=== PATIENT | female | born 1970 | race Hispanic/Latino ===

== ENCOUNTER 2018-07-12 13:50 | Emergency (ER) | payer MEDICARE ==
[~2018-07-12] VITALS: Ht 160 cm; Wt 99.8 kg
--- OUTSIDE RECORDS SUMMARY | 2018-07-12 13:54 | XMS REPORT | Continuity of Care Document ---
Author Author [facility] Interface Address Unknown Phone Unavailable Problems Problem Status Onset Date Classification Date Reported Comments Source Cerebrovascular accident Active 06/25/2018 06/29/2018 [facility] Right sided weakness Active 06/25/2018 06/29/2018 [facility] Dysphasia Active 06/25/2018 06/29/2018 [facility] Encounter to establish care Active 06/29/2018 [facility] Need for Tdap vaccination Active 06/29/2018 [facility] Cerebrovascular accident , unspecified mechanism Active 06/29/2018 [facility] Medications Medication Details Route Status Patient Instructions Ordering Provider Order Date Source ELIQUIS 5 mg tablet 1 tablet 2 times daily. Active 06/15/2018 [facility] atorvastatin (LIPITOR) 80 mg tablet 1 tablet daily. Active 06/15/2018 [facility] NIFEdipine (NIFEDIPINE ER) 60 mg 24 hr extended release tablet 1 tablet daily. Active 06/15/2018 [facility] losartan (COZAAR) 50 mg tablet Take 50 mg by mouth daily. Oral Active [facility] spironolactone (ALDACTONE) 25 mg tablet Take 12.5 mg by mouth daily. Oral Active [facility] insulin 70/30 NPH - REGULAR 100 unit/mL injection Inject under the skin 2 times daily (before meals). Subcutaneous Active [facility] Allergies, Adverse Reactions, Alerts Substance Category Reaction Severity Reaction type Status Date Reported Comments Source Immunizations Immunization Date Given Site Status Last Updated Comments Source Influenza, Vaccine<FLUCELVAX>(Multi-Dose) 06/25/2018 Not Given Deferred: Patient Refused [facility] Tdap (Tetanus Toxoid, Reduced Diphtheria Toxoid And Acellular Pertussis, Absorbed) 06/25/2018 Not Given Deferred: Patient Refused [facility] Results Order Name Results Value Reference Range Date Interpretation Comments Source Vital Signs Vital Sign Value Date Comments Source Heart Rate 88 06/25/2018 [facility] Systolic (mm Hg) 127 06/25/2018 [facility] Diastolic (mm Hg) 82 06/25/2018 [facility] Temperature Oral (F) 36.56 Laurie 06/25/2018 [facility] Respitory Rate 20 06/25/2018 [facility] Height 160 cm 06/25/2018 [facility] Weight 95.255 06/25/2018 [facility] Encounters Location Location Details Encounter Type Encounter Number Reason For Visit Attending Provider ADM Date DC Date Status Source [facility] Orders Only [id number] Fredy Stone MD 06/25/2018 [facility] Travel [id number] 06/25/2018 [facility] [place] Office Visit [id number] Fredy Stone MD 06/25/2018 06/25/2018 [facility] Procedures Procedure Code Date Perfomer Comments Source
--- OUTSIDE RECORDS SUMMARY | 2018-07-12 13:54 | XMS REPORT | Clinical Summary ---
Author Author [facility] Organization [facility] Address Unknown Phone Unavailable Care Team Providers Care Undercutter Operator Name Role Phone Fredy Stone MD PCP Allergies No Known Allergies Medications End Date Status Medication Sig Dispensed Refills Start Date Active ELIQUIS 5 mg tablet 1 tablet 2 0 times daily. 9 Active atorvastatin (LIPITOR) 80 1 tablet 0 mg tablet daily. 9 Active NIFEdipine (NIFEDIPINE 1 tablet 0 ER) 60 mg 24 hr extended daily. 9 release tablet Active losartan (COZAAR) 50 mg Take 50 mg by 0 tablet mouth daily. Active spironolactone Take 12.5 mg 0 (ALDACTONE) 25 mg by mouth tabletIndications: half daily. tablet daily Active insulin 70/30 NPH - Inject under 0 REGULAR 100 unit/mL the skin 2 injectionIndications: 20 times daily units AM and 10 units PM (before meals). Active Problems Problem Noted Date Cerebrovascular accident (CVA) 06/25/2018 Right sided weakness 06/25/2018 Dysphasia 06/25/2018 Encounters Care Team Description Date Type Specialty Fredy Stone MD Encounter to establish care (Primary Dx); Need for influenza vaccination; Need for Tdap vaccination; Cerebrovascular accident (CVA), unspecified mechanism; Right sided weakness; Dysphasia 06/25/2018 Office Visit Family Practice Fredy Stone MD Cerebrovascular accident (CVA), unspecified mechanism 06/25/2018 Orders Only Family Practice 06/25/2018 Travel after 06/28/2017 Immunizations Name Dates Previously Given Next Due Influenza, 06/25/2018 (Deferred: Patient Refused) Vaccine<FLUCELVAX>(Multi- Dose) Tdap (Tetanus Toxoid, 06/25/2018 (Deferred: Patient Refused) Reduced Diphtheria Toxoid And Acellular Pertussis, Absorbed) Family History Medical History Relation Name Comments Heart Father Hypertension Father Lipids Father Stroke Father Arthritis Mother Diabetes Mother Hypertension Mother Lipids Mother Stroke Mother Relation Name Status Comments Brother Alive 3 Daughter Alive 1 Father Maternal Grandfather Maternal Grandmother Mother Alive Paternal Grandfather Paternal Grandmother Sister Alive 1 Son Alive 2 Social History Date Tobacco Use Types Packs/Day Years Used Former Smoker Smokeless Tobacco: Never Used Alcohol Use Drinks/Week oz/Week Comments Yes socially Sex Assigned at Date Recorded Not on file Industry Job Start Date Occupation Not on file Not on file Not on file Travel End Travel History Travel Start No recent travel history available. Last Filed Vital Signs Time Taken Vital Sign Reading 06/25/2018 8:37 AM FLIGHT OPERATIONS MANAGER Blood Pressure 127/82 06/25/2018 9:45 AM FLIGHT OPERATIONS MANAGER Pulse 88 06/25/2018 8:37 AM FLIGHT OPERATIONS MANAGER Temperature 36.6 C (97.8 F) 06/25/2018 8:37 AM FLIGHT OPERATIONS MANAGER Respiratory Rate 20 - Oxygen Saturation - - Inhaled Oxygen - Concentration 06/25/2018 8:37 AM FLIGHT OPERATIONS MANAGER Weight 95.3 kg (210 lb) 06/25/2018 8:37 AM FLIGHT OPERATIONS MANAGER Height 160 cm (5' 3") 06/25/2018 8:37 AM FLIGHT OPERATIONS MANAGER Body Mass Index 37.2 Plan of Treatment Care Team Description Date Type Specialty confirmed 07/02/2018 Ancillary Radiology Procedure 07/24/2018 Lab Appointment Fredy Harper MD [address] [place] [id number] well women exam 07/24/2018 Office Visit Family Practice Ken Snow Denise 07/24/2018 Office Visit Clinical Pharmacy Health Maintenance Due Date Last Done Comments Cervical Cancer Scrn (3 1991 Yrs) Breast Cancer Scrn 2010 (Yearly) IMM Influenza Seasonal 01/22/2018Jan to June (>/=19 yrs) Results Not on fileafter 06/28/2017 Insurance Type Payer Benefit Subscriber ID Effective Phone Address Plan / Dates Group [place] MED[place] [id number] [facility] xxxxxxxxx 2018-P [phone] [id number] [place] [address] Advance Directives Patient has advance care planning documents on file. For more information, celi hernandez contact: [address] [address]
--- OUTSIDE RECORDS SUMMARY | 2018-07-12 13:54 | XMS REPORT | Clinical Summary ---
Author Author [facility] Organization [facility] Address Unknown Phone Unavailable Care Team Providers Care Heel Builder Name Role Phone Fredy Stone MD PCP [...] Encounters Care Team Description Date Type Specialty [facility] 07/10/2018 Telephone Social Work [facility] (Providers services); Pre-clinic Chart Review 07/04/2018 Telephone Social Work Fredy Stone MD Encounter to establish care 07/02/2018 Ancillary Radiology Procedure Fredy Stone MD Encounter to establish care (Primary Dx); Need for influenza vaccination; Need for Tdap vaccination; Cerebrovascular accident (CVA), unspecified mechanism; Right sided weakness; Dysphasia 06/25/2018 Office Visit Family Practice Fredy Stone MD Cerebrovascular accident (CVA), unspecified mechanism 06/25/2018 Orders Only Family Practice 06/25/2018 Travel after 07/11/2017 Immunizations Name Dates Previously Given Next Due [...] Taken Vital Sign Reading 06/25/2018 8:37 AM FLOOR HELPER Blood Pressure 127/82 06/25/2018 9:45 AM FLOOR HELPER Pulse 88 06/25/2018 8:37 AM FLOOR HELPER Temperature 36.6 C (97.8 F) 06/25/2018 8:37 AM FLOOR HELPER Respiratory Rate 20 - Oxygen Saturation - - Inhaled Oxygen - Concentration 06/25/2018 8:37 AM FLOOR HELPER Weight 95.3 kg (210 lb) 06/25/2018 8:37 AM FLOOR HELPER Height 160 cm (5' 3") 06/25/2018 8:37 AM FLOOR HELPER Body Mass Index 37.2 Plan of Treatment Care Team Description Date Type Specialty 07/24/2018 Lab Appointment Lab Fredy Stone MD [facility] [place] [address] [phone] well women exam 07/24/2018 Office Visit Family Practice Ken Snow RPH 07/24/2018 Office Visit Clinical Pharmacy Health Maintenance Due Date Last Done Comments Cervical Cancer Scrn (3 1991 Yrs) IMM Influenza Seasonal 01/22/2018 Oct to June (>/=19 yrs) Breast Cancer Scrn 07/03/2019 07/02/2018 (Yearly) Procedures Comments Procedure Name Priority Date/Time Associated Diagnosis MAMMOGRAM BILAT SCREEN Routine 07/02/2018 Encounter to establish DIGITAL 12:02 PM CDT care after 07/11/2017 Results * MAMMOGRAM BILAT SCREEN DIGITAL (07/02/2018 12:02 PM CDT) Impressions Performed At IMPRESSION: BENIGN SMS Limited examination, as detailed above. There is no definite mammographic evidence of malignancy. A 1 year screening mammogram is recommended. This document has been electronically signed. Chelsie Robles M.D. to/:07/02/2018 13:08:09 Gas Turbine Powerplant Mechanic: Ms. Carla Talamantes RT(R)(M), [facility] letter sent: Benign Exam Mammogram BI-RADS: 2 Benign G0202 z12.31 Narrative Performed At #[id number] - MAMMOGRAM BILAT SCREEN DIGITAL SMS BILATERAL DIGITAL SCREENING MAMMOGRAM WITH CAD: 07/02/2018 CLINICAL: Screening for malignancy. No prior exams were available for comparison. There are scattered fibroglandular elements in both breasts that could obscure a lesion on mammography. Current study was also evaluated with a Computer Aided Detection (CAD) system. Limited examination due to patient's limited mobility secondary to a stroke. Best images possible were obtained. There are benign calcifications in both breasts. No significant masses, calcifications, or other findings are seen in either breast. Procedure Note Interface, Rad/Mammog In - 07/02/2018 2:13 PM CDT #[id number] - MAMMOGRAM BILAT SCREEN DIGITAL BILATERAL DIGITAL SCREENING MAMMOGRAM WITH CAD: 07/02/2018 CLINICAL: Screening for malignancy. No prior exams were available for comparison. There are scattered fibroglandular elements in both breasts that could obscure a lesion on mammography. Current study was also evaluated with a Computer Aided Detection (CAD) system. Limited examination due to patient's limited mobility secondary to a stroke. Best images possible were obtained. There are benign calcifications in both breasts. No significant masses, calcifications, or other findings are seen in either breast. IMPRESSION IMPRESSION: BENIGN Limited examination, as detailed above. There is no definite mammographic evidence of malignancy. A 1 year screening mammogram is recommended. This document has been electronically signed. Chelsie Robles M.D. to/:07/02/2018 13:08:09 Gas Turbine Powerplant Mechanic: Ms. Carla Talamantes RT(R)(M), [facility] letter sent: Benign Exam Mammogram BI-RADS: 2 Benign G0202 z12.31 Performing Organization Address City/State/Zipcode Phone Number SMS after 07/11/2017 Insurance Type Payer Benefit Subscriber ID Effective Phone Address Plan / Dates Group [place] MEDICA[place] [id number] [employer] xxxxxxxxx 2018-P [phone] [address] [place] [address] Advance Directives Patient has advance care planning documents on file. For more information, celi hernandez contact: [facility] [address] [place] [id number]
--- OUTSIDE RECORDS SUMMARY | 2018-07-12 13:55 | XMS REPORT ---
[facility] Address Unknown Phone Unavailable Care Team Providers Care Assembler Brazer Name Role Phone Unavailable Unavailable Payers Payer Name Policy Type Policy Number Effective Date Expiration Date Problems This patient has no known problems. Allergies, Adverse Reactions, Alerts Allergy Name Allergy Type Status Severity Reaction(s) Onset Date Inactive Date Treating Clinician Comments No Known Allergies DA Active U 2018-05-13 00:00:00 No Known Allergies DA Active U 2015-09-26 00:00:00 Medications This patient has no known medications. Encounters Start Date/Time End Date/Time Encounter Type Admission Type Attending Clinicians [facility] Facility Care Department Encounter ID 2018-07-24 00:00:00 2018-07-24 00:00:00 Outpatient [facility] [id number] 2018-07-24 00:00:00 2018-07-24 00:00:00 Outpatient [facility] [id number] 2018-07-24 00:00:00 2018-07-24 00:00:00 Outpatient [facility] [id number] 2018-07-24 00:00:00 2018-07-24 00:00:00 Outpatient [facility] [id number] 2018-07-02 10:52:11 2018-07-02 10:52:11 Outpatient [facility] [id number] 2018-06-25 08:37:34 2018-06-25 08:37:34 Outpatient [facility] [id number] Results Test Description Test Time Test Comments Text Results Atomic Results Result Comments GLUBED 2018-06-15 17:04:00 GLUBED (test code=GLUBED) 147 MG/DL 70-110 Performed by certified sliver machine operator at [facility] [id number] 12:22:00* Test Item Value Reference Range Comments GLUBED (test code=GLUBED) 215 MG/DL 70-110 Performed by certified sliver machine operator at [facility] [id number] 07:55:00* Test Item Value Reference Range Comments GLUBED (test code=GLUBED) 141 MG/DL 70-110 Performed by certified sliver machine operator at [facility] [id number] 20:35:00* Test Item Value Reference Range Comments GLUBED (test code=GLUBED) 176 MG/DL 70-110 Performed by certified sliver machine operator at [facility] [id number] 17:16:00* Test Item Value Reference Range Comments GLUBED (test code=GLUBED) 159 MG/DL 70-110 Performed by certified sliver machine operator at [facility] [id number] 12:14:00* Test Item Value Reference Range Comments GLUBED (test code=GLUBED) 213 MG/DL 70-110 Performed by certified sliver machine operator at [facility] [id number] 08:36:00* Test Item Value Reference Range Comments GLUBED (test code=GLUBED) 183 MG/DL 70-110 Performed by certified sliver machine operator at [facility] [id number] 21:12:00* Test Item Value Reference Range Comments GLUBED (test code=GLUBED) 165 MG/DL 70-110 Performed by certified sliver machine operator at [facility] [id number] 16:50:00* Test Item Value Reference Range Comments GLUBED (test code=GLUBED) 232 MG/DL 70-110 Performed by certified sliver machine operator at [facility] [id number] 12:23:00* Test Item Value Reference Range Comments GLUBED (test code=GLUBED) 162 MG/DL 70-110 Performed by certified sliver machine operator at [facility] [id number] 08:27:00* Test Item Value Reference Range Comments GLUBED (test code=GLUBED) 206 MG/DL 70-110 Performed by certified sliver machine operator at [facility] [id number] 07:29:00* Test Item Value Reference Range Comments CREATININE (test code=CREAT) 0.7 mg/dL 0.6-1.3 [id number] 20:46:00* Test Item Value Reference Range Comments GLUBED (test code=GLUBED) 132 MG/DL 70-110 Performed by certified sliver machine operator at [facility] [id number] 16:46:00* Test Item Value Reference Range Comments GLUBED (test code=GLUBED) 155 MG/DL 70-110 Performed by certified sliver machine operator at [facility] [id number] 12:47:00* Test Item Value Reference Range Comments GLUBED (test code=GLUBED) 184 MG/DL 70-110 Performed by certified sliver machine operator at [facility] [id number] 07:58:00* Test Item Value Reference Range Comments GLUBED (test code=GLUBED) 195 MG/DL 70-110 Performed by certified sliver machine operator at [facility] [id number] 20:20:00* Test Item Value Reference Range Comments GLUBED (test code=GLUBED) 248 MG/DL 70-110 Performed by certified sliver machine operator at [facility] [id number] 16:39:00* Test Item Value Reference Range Comments GLUBED (test code=GLUBED) 148 MG/DL 70-110 Performed by certified sliver machine operator at [facility] [id number] 12:59:00* Test Item Value Reference Range Comments GLUBED (test code=GLUBED) 133 MG/DL 70-110 Performed by certified sliver machine operator at [facility] [id number] 08:35:00* Test Item Value Reference Range Comments GLUBED (test code=GLUBED) 228 MG/DL 70-110 Performed by certified sliver machine operator at [facility] [id number] 21:01:00* Test Item Value Reference Range Comments GLUBED (test code=GLUBED) 161 MG/DL 70-110 Performed by certified sliver machine operator at [facility] [id number] 17:23:00* Test Item Value Reference Range Comments GLUBED (test code=GLUBED) 168 MG/DL 70-110 Performed by certified sliver machine operator at [facility] [id number] 13:54:00* Test Item Value Reference Range Comments GLUBED (test code=GLUBED) 141 MG/DL 70-110 Performed by certified sliver machine operator at [facility] [id number] 12:54:00* Test Item Value Reference Range Comments GLUBED (test code=GLUBED) 197 MG/DL 70-110 Performed by certified sliver machine operator at [facility] [id number] 20:38:00* Test Item Value Reference Range Comments GLUBED (test code=GLUBED) 201 MG/DL 70-110 Performed by certified sliver machine operator at [facility] [id number] 17:52:00* Test Item Value Reference Range Comments GLUBED (test code=GLUBED) 164 MG/DL 70-110 Performed by certified sliver machine operator at [facility] [id number] 12:39:00* Test Item Value Reference Range Comments GLUBED (test code=GLUBED) 165 MG/DL 70-110 Performed by certified sliver machine operator at [facility] [id number] 08:32:00* Test Item Value Reference Range Comments GLUBED (test code=GLUBED) 116 MG/DL 70-110 Performed by certified sliver machine operator at [facility] [id number] 20:52:00* Test Item Value Reference Range Comments GLUBED (test code=GLUBED) 191 MG/DL 70-110 Performed by certified sliver machine operator at [facility] [id number] 17:35:00* Test Item Value Reference Range Comments GLUBED (test code=GLUBED) 162 MG/DL 70-110 Performed by certified sliver machine operator at [facility] [id number] 13:33:00* Test Item Value Reference Range Comments GLUBED (test code=GLUBED) 132 MG/DL 70-110 Performed by certified sliver machine operator at [facility] [id number] 08:30:00* Test Item Value Reference Range Comments GLUBED (test code=GLUBED) 110 MG/DL 70-110 Performed by certified sliver machine operator at [facility] [id number] 20:27:00* Test Item Value Reference Range Comments GLUBED (test code=GLUBED) 118 MG/DL 70-110 Performed by certified sliver machine operator at [facility] [id number] 17:30:00* Test Item Value Reference Range Comments GLUBED (test code=GLUBED) 167 MG/DL 70-110 Performed by certified sliver machine operator at [facility] [id number] 12:46:00* Test Item Value Reference Range Comments GLUBED (test code=GLUBED) 114 MG/DL 70-110 Performed by certified sliver machine operator at [facility] ARTERIAL THROMBOPHILIA [id number] 10:15:00* Test Item Value Reference Range Comments PROTHROMBIN 3 UNTRANSLATED (test code=FW6XIWD) NO MUTATION DETECTED () PROTHROMBIN (FACTOR II) 48291W>A MUTATION INTERPRETATION:This individual is negative (normal) for the Z02521Vgssmnbae in the Prothrombin/Factor II gene. Increased riskof thrombophilia can be caused by a variety of genetic andnon-genetic factors not screened for this assay. Laboratory testing supervised and results monitored byYulissa Crowley, Ph.D., [facility], [facility], [facility]. MUTATION ANALYSIS:The O95617W mutation [UM986563.1:g.80186B>A (c.*97G>A)] inthe Prothrombin/Factor II gene is the second most commoninherited risk factor for thrombosis occuring inapproximately 2% of Caucasians. Presence of the mutation isassociated with an elevation of prothrombin levels to about30% above normal in heterozygotes and 70% above normal inhomozygotes. The J19399H mutation is detected bypolymerase chain reaction (PCR) and flourescent probehybridization to the targeted region, followed by meltingcurve analysis with a real time PCR system. Although rare,false positive or false negative results may occur. Allresults should be interpreted in the context of clinicalfindings, relevant history, and other laboratory data. This test was developed and its analytical performancecharacteristics have been determined by [facility]. It has not beencleared or approved by the FDA. This assay has beenvalidated pursuant to the CLIA regulations and is used forclinical purposes. Health care providers, please contact your local [facility] genetic counselor or call [phone]) for assistance with interpretation of theseresults. Performed by: Mydeo Bismark ross/[place] [address] PROTHROMBIN TIME PATIENT (test code=PTP) 10.7 SECONDS 9.3-12.9 INTERNATIONAL NORMAL RATIO (test code=INR) 1.0 0.8-1.2 TARGET INR BY INDICATION Indication INR1. Prophylaxis of venous thrombosis 2.0 - 3.0 (orthopedic surgery), Prophylaxis of venous thrombosis (other than high-risk surgery), Treatment of Deep Vein Thrombosis/Pulmonary Embolism, Prevention of systemic embolism - Tissue heart valves, Acute Myocardial Infarction (to prevent systemic embolism), Valvular heart disease, Atrial Fibrillation, Bileaflet mechanical valve in aortic position.2. Mechanical prosthetic valves (high risk), 2.5 - 3.5 Presence of Lupus Anticoagulant or Antiphospholipid Antibodies, Prevention of systemic embolism - Acute Myocardial Infarction (to prevent recurrent infarct). THROMBOPLASTIN TIME PARTIAL (test code=PTT) 34.0 Seconds 25.0-39.5 Therapeutic Range: 61.8-83.8 Sec Effective 05/22/2013 PTT 1:1 MIX MAGICIAN HELPER (test code=PTTMIX2) TEST NOT PERFORMED SECS PTT 1:3 MIX (test code=PTTMIX3) TEST NOT PERFORMED SECS PT 1:2 MIX (test code=PTMIX2) TEST NOT PERFORMED SECS RVVT PATIENT (test code=RVVTPAT) 0.9 RATIO 0.0-1.2 ACTIVATED PROT C RESISTANCE (test code=APC) 3.22 RATIO 2.31-5.00 Ratios > or=to 2.31 are considered negative for the FactorV Leiden. SILICA CLOTTING TIME (test code=SILCLOT) 1.13 <1.14 PT 11.2 sec (9.6-13.0)PTT 29 sec (25-37) A Lupus Anticoagulant is NOT DETECTED. This interpretationis based on the test results. FACTOR V MUTATION (LEIDEN) (test code=FAC5M) NO MUTATION DETECTED () FACTOR V (LEIDEN) MUTATION INTERPRETATION:This individual is negative (normal) for the Factor V Leiden(R506Q) in the Factor V gene. Increased risk ofthrombophilia can be caused by a variety of genetic andnon-genetic factors not screened for this assay. Laboratory testing supervised and results monitored byKade Bethea, Ph.D., [facility], [facility]. MUTATION ANALYSIS:The Factor v Leiden (R560Q) mutation [NM 0 [address]375.2: c.1601G>A(p.R534Q)] in the Factor V gene is one of the most commoncauses of inherited thrombophilia. This mutation causesresistance to degradation of the activated protein C (APC).The Factor V Leiden (R506Q) mutation is detected bypolymerase chain reaction (PCR) and flourescent probehybridization to the targeted region, followed by meltingcurve analysis with a real time PCR system. Although rare,false positive or false negative results may occur. Allresults should be interpreted in the context of clinicalfindings, relevant history, and other laboratory data. This test was developed and its analytical performancecharacteristics have been determined by [facility]. It has not beencleared or approved by the FDA. This assay has beenvalidated pursuant to the CLIA regulations and is used forclinical purposes. Health care providers, please contact your local [facility] genetic counselor or call [phone]) for assistance with interpretation of theseresults. Performed by: Commissioner/[facility] [place] [address] PROTEIN S FREE (test code=PROTSFR) 107 % 55-124 Protein S deficiency may be acquired due to recentthrombosis, oral anticoagulant therapy, , oralcontraceptives or hormone replacement therapy, liverdysfunction, recent surgery, DIC, and vitamin K deficiency.Hereditary deficiency of Protein S show decreased levels butare rare. Elevated Protein S levels are not clinicallysignificant. Only decreased levels are associated with anincreased thrombotic risk. MILLY IGG (test code=ACAG) 0.6 GPL <=15 MILLY IGA (test code=ACAA) 1.4 APL <=12 MILLY IGM (test code=ACAM) 2.9 MPL <=12.5 The Antiphospholipid Syndrome (APS) is a clinical pathologiccondition that includes a clinical event (vascularthrombosis, mortality, thrombocytopenia, etc.) andpersistent positivity of antiphospholipid antibodies (IgG orIgM MILLY>40 GPL/MPL, IgG or IgM anti-B2GPI antibodies, or thepresence of a Lupus Anticoagulant). The InternationalConsensus guidelines suggest that these isotypes must bepresent on two or more occasions and at least 12 weeks apartto confirm antibody persistence. Although the IgA isotypehas been implicated in thrombotic events, these isotypeshave not yet been included into the APS criteria. FHOG-0-WKUUR I IGM (test code=GPIIGM) 1.4 SMU 0.0-20.0 CRJH-3-HTFVE I IGG (test code=GPIIGG) 0.5 SGU 0.0-20.0 TABB-5-THZZC I IGA (test code=GPIIGA) 5.7 MIESHA 0.0-20.0 The Antiphospholipid Syndrome (APS) is a clinical pathologiccondition that includes a clinical event (vascularthrombosis, mortality, thrombocytopenia, etc.) andpersistent positivity of antiphospholipid antibodies (IgG orIgM MILLY>40 GPL/MPL, IgG or IgM anti-B2GPI antibodies, or thepresence of a Lupus Anticoagulant). The InternationalConsensus guidelines suggest that these isotypes must bepresent on two or more occasions and at least 12 weeks apartto confirm antibody persistence. Although the IgA isotypehas been implicated in thrombotic events, these isotypeshave not yet been included into the APS criteria. HOMOCYSTEINE (test code=HOMOCY) 6.4 umol/L 3.2-10.7 HIGH SENSITIVITY CRP (test code=CRPHS) 0.275 mg/dl 0.000-0.747 [id number] 08:31:00* Test Item Value Reference Range Comments GLUBED (test code=GLUBED) 113 MG/DL 70-110 Performed by certified sliver machine operator at [facility] BASIC METABOLIC [id number] 08:00:00* Test Item Value Reference Range Comments SODIUM (test code=NA) 138 mEq/L 134-147 POTASSIUM (test code=K) 3.5 mEq/L 3.4-5.0 CHLORIDE (test code=CL) 108 mEq/L 100-108 CARBON DIOXIDE (test code=CO2) 24 mEq/L 21-33 ANION GAP (test code=GAP) 10 0-20 GLUCOSE (test code=GLU) 98 mg/dL 70-110 BLOOD UREA NITROGEN (test code=BUN) 17 mg/dL 7-18 GLOMERULAR FILTRATION RATE (test code=GFR) 106.7 95-105 Units of measure=ml/min/1.73 m2 CREATININE (test code=CREAT) 0.6 mg/dL 0.6-1.3 CALCIUM (test code=CA) 8.9 mg/dL 8.0-10.5 CBC W/AUTO [id number] 06:55:00* Test Item Value Reference Range Comments WHITE BLOOD CELL (test code=WBC) 7.72 x10 3/uL 4.5-11.0 RED BLOOD CELL (test code=RBC) 4.45 x10 6/uL 3.54-5.02 HEMOGLOBIN (test code=HGB) 13.0 g/dL 11.0-15.0 HEMATOCRIT (test code=HCT) 41.7 % 33.0-45.0 MEAN CELL VOLUME (test code=MCV) 93.7 fL 81.0-99.0 MEAN CELL HGB (test code=MCH) 29.2 pg 27.0-33.0 MEAN CELL HGB CONCETRATION (test code=MCHC) 31.2 g/dL 33.0-37.0 RED CELL DISTRIBUTION WIDTH CV (test code=RDW) 12.0 % 11.5-14.5 RED CELL DISTRIBUTION WIDTH SD (test code=RDW-SD) 41.3 fL 37.0-54.0 PLATELET COUNT (test code=PLT) 208 x10 3/uL 150-400 MEAN PLATELET VOLUME (test code=MPV) 12.5 fL 7.0-9.0 NEUTROPHIL % (test code=NT%) 55.8 % 56.0-77.0 IMMATURE GRANULOCYTE % (test code=IG%) 0.1 % 0.0-2.0 LYMPHOCYTE % (test code=LY%) 35.2 % 14.0-32.0 MONOCYTE % (test code=MO%) 6.3 % 4.8-9.0 EOSINOPHIL % (test code=EO%) 1.8 % 0.3-3.7 BASOPHIL % (test code=BA%) 0.8 % 0.0-2.0 NUCLEATED RBC % (test code=NRBC%) 0.0 % 0-0 NEUTROPHIL # (test code=NT#) 4.30 x10 3/uL 2.0-7.6 IMMATURE GRANULOCYTE # (test code=IG#) 0.01 x10 3/uL 0.00-0.03 LYMPHOCYTE # (test code=LY#) 2.72 x10 3/uL 1.0-3.8 MONOCYTE # (test code=MO#) 0.49 x10 3/uL 0.1-0.8 EOSINOPHIL # (test code=EO#) 0.14 x10 3/uL 0.0-0.2 BASOPHIL # (test code=BA#) 0.06 x10 3/uL 0.0-0.2 NUCLEATED RBC # (test code=NRBC#) 0.00 x10 3/uL 0.0-0.1 MANUAL DIFF REQUIRED (test code=MDIFF) NO [id number] 19:50:00* Test Item Value Reference Range Comments GLUBED (test code=GLUBED) 180 MG/DL 70-110 Performed by certified sliver machine operator at [facility] [id number] 17:37:00* Test Item Value Reference Range Comments GLUBED (test code=GLUBED) 70 MG/DL 70-110 Performed by certified sliver machine operator at [facility] [id number] 12:55:00* Test Item Value Reference Range Comments GLUBED (test code=GLUBED) 95 MG/DL 70-110 Performed by certified sliver machine operator at [facility] ARTERIAL THROMBOPHILIA [id number] 09:20:00* Test Item Value Reference Range Comments PROTHROMBIN 3 UNTRANSLATED (test code=HZ1XFNC) NO MUTATION DETECTED () PROTHROMBIN (FACTOR II) 37883W>A MUTATION INTERPRETATION:This individual is negative (normal) for the U98932Vsfrfnnis in the Prothrombin/Factor II gene. Increased riskof thrombophilia can be caused by a variety of genetic andnon-genetic factors not screened for this assay. Laboratory testing supervised and results monitored Topher Crowley, Ph.D., DABMG, HCLD, CGMB. MUTATION ANALYSIS:The X97806L mutation [HH672355.1:g.67847L>A (c.*97G>A)] inthe Prothrombin/Factor II gene is the second most commoninherited risk factor for thrombosis occuring inapproximately 2% of Caucasians. Presence of the mutation isassociated with an elevation of prothrombin levels to about30% above normal in heterozygotes and 70% above normal inhomozygotes. The M11546W mutation is detected bypolymerase chain reaction (PCR) and flourescent probehybridization to the targeted region, followed by meltingcurve analysis with a real time PCR system. Although rare,false positive or false negative results may occur. Allresults should be interpreted in the context of clinicalfindings, relevant history, and other laboratory data. This test was developed and its analytical performancecharacteristics have been determined by [facility]. It has not beencleared or approved by the FDA. This assay has beenvalidated pursuant to the CLIA regulations and is used forclinical purposes. Health care providers, please contact your local [facility] genetic counselor or call [phone]) for assistance with interpretation of theseresults. Performed by: Mydeo Bismark ross/[place] [address] PROTHROMBIN TIME PATIENT (test code=PTP) 10.7 SECONDS 9.3-12.9 INTERNATIONAL NORMAL RATIO (test code=INR) 1.0 0.8-1.2 TARGET INR BY INDICATION Indication INR1. Prophylaxis of venous thrombosis 2.0 - 3.0 (orthopedic surgery), Prophylaxis of venous thrombosis (other than high-risk surgery), Treatment of Deep Vein Thrombosis/Pulmonary Embolism, Prevention of systemic embolism - Tissue heart valves, Acute Myocardial Infarction (to prevent systemic embolism), Valvular heart disease, Atrial Fibrillation, Bileaflet mechanical valve in aortic position.2. Mechanical prosthetic valves (high risk), 2.5 - 3.5 Presence of Lupus Anticoagulant or Antiphospholipid Antibodies, Prevention of systemic embolism - Acute Myocardial Infarction (to prevent recurrent infarct). THROMBOPLASTIN TIME PARTIAL (test code=PTT) 34.0 Seconds 25.0-39.5 Therapeutic Range: 61.8-83.8 Sec Effective 05/22/2013 PTT 1:1 MIX MAGICIAN HELPER (test code=PTTMIX2) TEST NOT PERFORMED SECS PTT 1:3 MIX (test code=PTTMIX3) TEST NOT PERFORMED SECS PT 1:2 MIX (test code=PTMIX2) TEST NOT PERFORMED SECS RVVT PATIENT (test code=RVVTPAT) 0.9 RATIO 0.0-1.2 ACTIVATED PROT C RESISTANCE (test code=APC) 3.22 RATIO 2.31-5.00 Ratios > or=to 2.31 are considered negative for the FactorV Leiden. SILICA CLOTTING TIME (test code=SILCLOT) 1.13 <1.14 PT 11.2 sec (9.6-13.0)PTT 29 sec (25-37) A Lupus Anticoagulant is NOT DETECTED. This interpretationis based on the test results. FACTOR V MUTATION (LEIDEN) (test code=FAC5M) NO MUTATION DETECTED () FACTOR V (LEIDEN) MUTATION INTERPRETATION:This individual is negative (normal) for the Factor V Leiden(R506Q) in the Factor V gene. Increased risk ofthrombophilia can be caused by a variety of genetic andnon-genetic factors not screened for this assay. Laboratory testing supervised and results monitored byKade Bethea, Ph.D., [facility], [facility]. MUTATION ANALYSIS:The Factor v Leiden (R560Q) mutation [NM 0 83435.2: c.1601G>A(p.R534Q)] in the Factor V gene is one of the most commoncauses of inherited thrombophilia. This mutation causesresistance to degradation of the activated protein C (APC).The Factor V Leiden (R506Q) mutation is detected bypolymerase chain reaction (PCR) and flourescent probehybridization to the targeted region, followed by meltingcurve analysis with a real time PCR system. Although rare,false positive or false negative results may occur. Allresults should be interpreted in the context of clinicalfindings, relevant history, and other laboratory data. This test was developed and its analytical performancecharacteristics have been determined by [facility]. It has not beencleared or approved by the FDA. This assay has beenvalidated pursuant to the CLIA regulations and is used forclinical purposes. Health care providers, please contact your local [facility] genetic counselor or call [phone]) for assistance with interpretation of theseresults. Performed by: Commissioner/[facility] [address] PROTEIN S FREE (test code=PROTSFR) 107 % 55-124 Protein S deficiency may be acquired due to recentthrombosis, oral anticoagulant therapy, , oralcontraceptives or hormone replacement therapy, liverdysfunction, recent surgery, DIC, and vitamin K deficiency.Hereditary deficiency of Protein S show decreased levels butare rare. Elevated Protein S levels are not clinicallysignificant. Only decreased levels are associated with anincreased thrombotic risk. MILLY IGG (test code=ACAG) 0.6 GPL <=15 MILLY IGA (test code=ACAA) 1.4 APL <=12 MILLY IGM (test code=ACAM) 2.9 MPL <=12.5 The Antiphospholipid Syndrome (APS) is a clinical pathologiccondition that includes a clinical event (vascularthrombosis, mortality, thrombocytopenia, etc.) andpersistent positivity of antiphospholipid antibodies (IgG orIgM MILLY>40 GPL/MPL, IgG or IgM anti-B2GPI antibodies, or thepresence of a Lupus Anticoagulant). The InternationalConsensus guidelines suggest that these isotypes must bepresent on two or more occasions and at least 12 weeks apartto confirm antibody persistence. Although the IgA isotypehas been implicated in thrombotic events, these isotypeshave not yet been included into the APS criteria. SMNX-3-INOTP I IGM (test code=GPIIGM) 1.4 SMU 0.0-20.0 VKPM-1-RPYMM I IGG (test code=GPIIGG) 0.5 SGU 0.0-20.0 CMTX-6-IOJJA I IGA (test code=GPIIGA) 5.7 MIESHA 0.0-20.0 The Antiphospholipid Syndrome (APS) is a clinical pathologiccondition that includes a clinical event (vascularthrombosis, mortality, thrombocytopenia, etc.) andpersistent positivity of antiphospholipid antibodies (IgG orIgM MILLY>40 GPL/MPL, IgG or IgM anti-B2GPI antibodies, or thepresence of a Lupus Anticoagulant). The InternationalConsensus guidelines suggest that these isotypes must bepresent on two or more occasions and at least 12 weeks apartto confirm antibody persistence. Although the IgA isotypehas been implicated in thrombotic events, these isotypeshave not yet been included into the APS criteria. HOMOCYSTEINE (test code=HOMOCY) 6.4 umol/L 3.2-10.7 HIGH SENSITIVITY CRP (test code=CRPHS) mg/dl 0.000-0.747 [id number] 08:07:00* Test Item Value Reference Range Comments GLUBED (test code=GLUBED) 104 MG/DL 70-110 Performed by certified sliver machine operator at [facility] ARTERIAL THROMBOPHILIA [id number] 21:22:00* Test Item Value Reference Range Comments PROTHROMBIN 3 UNTRANSLATED (test code=PJ9SHAN) PROTHROMBIN TIME PATIENT (test code=PTP) 10.7 SECONDS 9.3-12.9 INTERNATIONAL NORMAL RATIO (test code=INR) 1.0 0.8-1.2 TARGET INR BY INDICATION Indication INR1. Prophylaxis of venous thrombosis 2.0 - 3.0 (orthopedic surgery), Prophylaxis of venous thrombosis (other than high-risk surgery), Treatment of Deep Vein Thrombosis/Pulmonary Embolism, Prevention of systemic embolism - Tissue heart valves, Acute Myocardial Infarction (to prevent systemic embolism), Valvular heart disease, Atrial Fibrillation, Bileaflet mechanical valve in aortic position.2. Mechanical prosthetic valves (high risk), 2.5 - 3.5 Presence of Lupus Anticoagulant or Antiphospholipid Antibodies, Prevention of systemic embolism - Acute Myocardial Infarction (to prevent recurrent infarct). THROMBOPLASTIN TIME PARTIAL (test code=PTT) 34.0 Seconds 25.0-39.5 Therapeutic Range: 61.8-83.8 Sec Effective 05/22/2013 PTT 1:1 MIX MAGICIAN HELPER (test code=PTTMIX2) TEST NOT PERFORMED SECS PTT 1:3 MIX (test code=PTTMIX3) TEST NOT PERFORMED SECS PT 1:2 MIX (test code=PTMIX2) TEST NOT PERFORMED SECS RVVT PATIENT (test code=RVVTPAT) 0.9 RATIO 0.0-1.2 ACTIVATED PROT C RESISTANCE (test code=APC) 3.22 RATIO 2.31-5.00 Ratios > or=to 2.31 are considered negative for the FactorV Leiden. SILICA CLOTTING TIME (test code=SILCLOT) 1.13 <1.14 PT 11.2 sec (9.6-13.0)PTT 29 sec (25-37) A Lupus Anticoagulant is NOT DETECTED. This interpretationis based on the test results. FACTOR V MUTATION (LEIDEN) (test code=FAC5M) PROTEIN S FREE (test code=PROTSFR) 107 % 55-124 Protein S deficiency may be acquired due to recentthrombosis, oral anticoagulant therapy, , oralcontraceptives or hormone replacement therapy, liverdysfunction, recent surgery, DIC, and vitamin K deficiency.Hereditary deficiency of Protein S show decreased levels butare rare. Elevated Protein S levels are not clinicallysignificant. Only decreased levels are associated with anincreased thrombotic risk. MILLY IGG (test code=ACAG) 0.6 GPL <=15 MILLY IGA (test code=ACAA) 1.4 APL <=12 MILLY IGM (test code=ACAM) 2.9 MPL <=12.5 The Antiphospholipid Syndrome (APS) is a clinical pathologiccondition that includes a clinical event (vascularthrombosis, mortality, thrombocytopenia, etc.) andpersistent positivity of antiphospholipid antibodies (IgG orIgM MILLY>40 GPL/MPL, IgG or IgM anti-B2GPI antibodies, or thepresence of a Lupus Anticoagulant). The InternationalConsensus guidelines suggest that these isotypes must bepresent on two or more occasions and at least 12 weeks apartto confirm antibody persistence. Although the IgA isotypehas been implicated in thrombotic events, these isotypeshave not yet been included into the APS criteria. VEJO-4-QURLD I IGM (test code=GPIIGM) 1.4 SMU 0.0-20.0 ANCF-4-WTLAO I IGG (test code=GPIIGG) 0.5 SGU 0.0-20.0 JVPR-2-UEIGB I IGA (test code=GPIIGA) 5.7 MIESHA 0.0-20.0 The Antiphospholipid Syndrome (APS) is a clinical pathologiccondition that includes a clinical event (vascularthrombosis, mortality, thrombocytopenia, etc.) andpersistent positivity of antiphospholipid antibodies (IgG orIgM MILLY>40 GPL/MPL, IgG or IgM anti-B2GPI antibodies, or thepresence of a Lupus Anticoagulant). The InternationalConsensus guidelines suggest that these isotypes must bepresent on two or more occasions and at least 12 weeks apartto confirm antibody persistence. Although the IgA isotypehas been implicated in thrombotic events, these isotypeshave not yet been included into the APS criteria. HOMOCYSTEINE (test code=HOMOCY) 6.4 umol/L 3.2-10.7 HIGH SENSITIVITY CRP (test code=CRPHS) mg/dl 0.000-0.747 [id number] 20:35:00* Test Item Value Reference Range Comments GLUBED (test code=GLUBED) 167 MG/DL 70-110 Performed by certified sliver machine operator at [facility] [id number] 17:33:00* Test Item Value Reference Range Comments GLUBED (test code=GLUBED) 184 MG/DL 70-110 Performed by certified sliver machine operator at [facility] [id number] 12:30:00* Test Item Value Reference Range Comments GLUBED (test code=GLUBED) 202 MG/DL 70-110 Performed by certified sliver machine operator at [facility] [id number] 08:15:00* Test Item Value Reference Range Comments GLUBED (test code=GLUBED) 121 MG/DL 70-110 Performed by certified sliver machine operator at [facility] [id number] 21:26:00* Test Item Value Reference Range Comments GLUBED (test code=GLUBED) 154 MG/DL 70-110 Performed by certified sliver machine operator at [facility] [id number] 19:43:00* Test Item Value Reference Range Comments GLUBED (test code=GLUBED) 203 MG/DL 70-110 Performed by certified sliver machine operator at [facility] [id number] 17:34:00* Test Item Value Reference Range Comments GLUBED (test code=GLUBED) 211 MG/DL 70-110 Performed by certified sliver machine operator at [facility] - CT ANGIO [id number] 15:23:00 Name: TIM DALTON [facility] : 1970 Age/S: 48 / F [address] [place] [address] Unit #: [id number] Loc: [place] [address] Phys: Abbi Mckeon MD Acct: [id number] Dis Date: Status: ADM IN PHONE #: [phone] Exam Date: 06/04/2018 1415 FAX #: [phone] Reason: stroke EXAMS: CPT CODE: [id number] CT ANGIO NECK 58889 CTA HEAD, CTA NECK INDICATION:Stroke, hypertensive emergency, acute right cerebrovascular accident.. TECHNIQUE: 100 mL Isovue-300 Iodinated intravenous contrast was administered. CT angiogram was performed of the head with axial, coronal and sagittal reconstructions. Maximum intensity projections were reviewed. CT angiogram of the neck was performed with axial, coronal and sagittal reconstructions. Maximum intensity projections were reviewed. Radiation dose length product 2075 mGy-cm. COMPARISONS: MRI brain 06/04/2018, head CT 06/04/2018. MR angiogram neck to 11/10/2018 FINDINGS: CTA HEAD: The paranasal sinuses are clear as visualized. The mastoid air cells and middle ears appear clear as visualized. There is no acute depressed skull fracture. There is stable evolving encephalomalacia within the left corpus callosum body, cingulate gyrus and alvarez radiata white matter. There are stable chronic bilateral mild changes of chronic small vessel ischemic disease with hypodense lesions in the alis, basal ganglia and frontoparietal white matter. There is no mass effect, midline shift or herniation. There is no evidence of intracranial hemorrhage. The vertebral arteries reveal no aneurysm, dissection or high-grade luminal stenosis. The basilar artery reveals no aneurysm, dissection, high-grade stenosis or occlusion. The posterior cerebral arteries reveal no aneurysm, dissection or high-grade luminal st enosis. There is a origin of the right posterior cerebral artery, an anatomic variation. PAGE 1 Signed Report (CONTINUED) Name: TIM DALTON [facility] : 1970 Age/S: 48 / F [address] [facility] Unit #: [id number] Loc: [place] [address] Phys: Abbi Mckeon MD Acct: [id number] Dis Date: Status: ADM IN PHONE #: [phone] Exam Date: 06/04/2018 1415 FAX #: [phone] Reason: stroke EXAMS: CPT CODE: [id number] CT ANGIO NECK 28823 < Continued> There is calcified atherosclerotic plaque of the right internal carotid artery with up to 25% luminal stenosis in the cavernous segment. There is no dissection or aneurysm. There is calcified atherosclerotic plaque of the left internal carotid artery with less than 25% stenosis in the cavernous segment. There is no dissection or aneurysm. There is occlusion of the distal left A2 segment anterior cerebral artery. The right anterior cerebral artery is widely patent. CTA NECK: There is no acute osseous fracture or dislocation. There is moderate nonspecific lingual tonsillar hypertrophy. There is an 8 mm enhancing right thyroid isthmus nodule. Thyroid nodules this size in this patient's age are statistically most likely benign and require no additional follow-up. There is no cervical lymphadenopathy, mass or organized fluid collection. The lung apices reveal no acute process. The aortic arch reveals no dissection, aneurysm or significant stenosis. There is an incidental anatomic variation of the aortic arch with a common origin of the brachiocephalic artery and the left common carotid artery. The brachiocephalic artery is widely patent. The subclavian arteries are widely patent. The vertebral arteries reveal no aneurysm, dissection or high-grade luminal stenosis. The bilateral common carotid and internal carotid arteries reveal no stenosis, dissection, aneurysm or occlusion. IMPRESSION: CTA HEAD: 1. 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 The remaining intracranial arteries are PAGE 2 Signed Report (CONTINUED) Name: TIM DALTON [facility] : 1970 Age/S: 48 / F [address] [place] [address] Blvd Unit #: [id number] Loc: [place] [address] [facility] s: Abbi Mckeon MD Acct: [id number] Dis Date: Status: ADM IN PHONE #: [phone] Exam Date: 06/04/2018 1415 FAX #: [phone] Reason: stroke EXAMS: CPT CODE: [id number] CT ANGIO NECK 54128 <Continued> widely patent. 2. There is stable evolving encephalomalacia within the left corpus callosum body, cingulate gyrus and alvarez radiata white matter. There are stable chronic bilateral mild changes of chronic small vessel ischemic disease with hypodense lesions in the alis, basal ganglia and frontoparietal white matter. There is no mass effect, midline shift or herniation. There is no evidence of intracran ial hemorrhage. CTA NECK: 1. There is no cervical art erial occlusion, stenosis, dissection or aneurysm. CAROTID STENOSIS REFERENCE USING NASCET CRITERIA: % ICA stenosis=(1-narrowest ICA diameter/diameter of distal cervical ICA) x 100 -Mild: <50% stenosis -Moderate: 50-69% stenosis - Severe: 70-94% stenosis -Near occlusion: 95-99% stenosis - Occluded: 100% stenosis at 1523 Reported and signed by: Loco Person D.O. CC: Abbi Mckeon MD; Vidal Martinez MD Technologist:Haja Gasca, RT(R)(CT) CTDI: DLP: Trnscb Date/Time: 06/04/2018 (1523) [email or web address] Orig Print D/T: S: 06/04/2018 (1526) CTDI: DLP: PAGE 3 Signed Report - CT ANGIO [id number] 15:23:00 Name: TIM DALTON [facility] : 1970 Age/S: 48 / F [address] [place] [address] Unit #: [id number] Loc: [place] [address] Phys: Cecilia Mckeon MD Acct: [id number] Di s Date: Status: ADM IN PHONE #: Exam Date: 06/04/2018 1415 FAX #: Reason: stroke EXAMS: CPT CODE: [id number] CT ANGIO HEAD 95498 CTA HEAD, CTA NECK INDICATION:Stroke, hypertensive emergency, acute right cerebrovascular accident.. TECHNIQUE: 100 mL Isovue-300 Iodinated intravenous contrast was administered. CT angiogram was performed of the head with a xial, coronal and sagittal reconstructions. Maximum intensity projections were reviewed. CT angiogram of the neck was performed with axial, coronal and sagittal reconstructions. Maximum intensity projecti ons were reviewed. Radiation dose length product 2075 mGy- cm. COMPARISONS: MRI brain 06/04/2018, head CT 06/04/2018. MR angio gram neck to 11/10/2018 FINDINGS: CTA H EAD: The paranasal sinuses are clear as visualized. The mastoid ai r cells and middle ears appear clear as visualized. There is no acute depressed skull fracture. There is stable evolving encephalomala simon within the left corpus callosum body, cingulate gyrus and alvarez radia ta white matter. There are stable chronic bilateral mild changes of chron ic small vessel ischemic disease with hypodense lesions in the alis, basal ganglia and frontoparietal white matter. There is no mass effect, midline shift or herniation. There is no evidence of intracranial hemorrhage. The vertebral arteries reveal no aneurysm, dissection or high-grade luminal stenosis. The basilar artery reveals no aneurysm, dissection, high-grade stenosis or occlusion. The posterior cerebral arteries reveal no aneurysm, dissection or high-grade luminal st enosis. There is a origin of the right posterior cerebral artery, an anatomic variation. PAGE 1 Signed Report (CONTINUED) Name: TIM DALTON [facility] : 1970 Age/S: 48 / F [address] [facility] [address] Unit #: [id number] Loc: [place] [address] Phys: Abbi Mckeon MD Acct: [id number] Dis Date: Status: ADM IN PHONE #: [phone] Exam Date: 06/04/2018 1415 FAX #: [phone] Reason: stroke EXAMS: CPT CODE: [id number] CT ANGIO HEAD [address]20[address] < Continued> There is calcified atherosclerotic plaque of the right internal carotid artery with up to 25% luminal stenosis in the cavernous segment. There is no dissection or aneurysm. There is calcified atherosclerotic plaque of the left internal carotid artery with less than 25% stenosis in the cavernous segment. There is no dissection or aneurysm. There is occlusion of the distal left A2 segment anterior cerebral artery. The right anterior cerebral artery is widely patent. CTA NECK: There is no acute osseous fracture or dislocation. There is moderate nonspecific lingual tonsillar hypertrophy. There is an 8 mm enhancing right thyroid isthmus nodule. Thyroid nodules this size in this patient's age are statistically most likely benign and require no additional follow-up. There is no cervical lymphadenopathy, mass or organized fluid collection. The lung apices reveal no acute process. The aortic arch reveals no dissection, aneurysm or significant stenosis. There is an incidental anatomic variation of the aortic arch with a common origin of the brachiocephalic artery and the left common carotid artery. The brachiocephalic artery is widely patent. The subclavian arteries are widely patent. The vertebral arteries reveal no aneurysm, dissection or high-grade luminal stenosis. The bilateral common carotid and internal carotid arteries reveal no stenosis, dissection, aneurysm or occlusion. IMPRESSION: CTA HEAD: 1. 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 The remaining intracranial arteries are PAGE 2 Signed Report (CONTINUED) Name: TIM DALTON [facility] : 1970 Age/S: 48 / F [address] [place] [address] Unit #: [id number] Loc: [place] [address] [facility] s: Abbi Mckeon MD Acct: [id number] Dis Date: Status: ADM IN PHONE #: [phone] Exam Date: 06/04/2018 1415 FAX #: [phone] Reason: stroke EXAMS: CPT CODE: [id number] CT ANGIO HEAD [address] <Continued> widely patent. 2. There is stable evolving encephalomalacia within the left corpus callosum body, cingulate gyrus and alvarez radiata white matter. There are stable chronic bilateral mild changes of chronic small vessel ischemic disease with hypodense lesions in the alis, basal ganglia and frontoparietal white matter. There is no mass effect, midline shift or herniation. There is no evidence of intracran ial hemorrhage. CTA NECK: 1. There is no cervical art erial occlusion, stenosis, dissection or aneurysm. CAROTID STENOSIS REFERENCE USING NASCET CRITERIA: % ICA stenosis=(1-narrowest ICA diameter/diameter of distal cervical ICA) x 100 -Mild: <50% stenosis -Moderate: 50-69% stenosis - Severe: 70-94% stenosis -Near occlusion: 95-99% stenosis - Occluded: 100% stenosis at 1523 Reported and signed by: Loco Person D.O. CC: Abbi Mckeon MD; Vidal Martinez MD Technologist:Haja Gasca, RT(R)(CT) CTDI: DLP: Trnscb Date/Time: 06/04/2018 (1523) [id number] Orig Print D/T: S: 06/04/2018 (1526) CTDI: DLP: PAGE 3 Signed Report [id number] 12:41:00* Test Item Value Reference Range Comments GLUBED (test code=GLUBED) 160 MG/DL 70-110 Performed by certified sliver machine operator at [facility] - MRI BRAIN W/O [id number] 11:51:00 FAX: Abbi Hearn MD [place]: St: ADM FAX: Beth Vidal Martinez [phone] Name: TIM DALTON [facility] : 1970 Age/S: 48/F [address] [place] [address] Unit #: [id number] Loc: [address] [address] Phys: Abbi Mckeon MD Acct: [id number] Dis Date: Status: ADM IN PHONE #: [phone] Exam Date: 06/04/2018 1131 FAX #: [phone] Reason: WORSENING OF WEAKNESS EXAMS: CPT CODE: [id number] MRI BRAIN W/O CONT 04785 Study: - MRI BRAIN W/O CONT 06/04/2018 10:10 AM Patient Name: TIM DALTON MR: [id number] : 1970; Age: 48 years y/o Female Ordering Physician: Abbi Mckeon MD Clinical Indication: WORSENING OF WEAKNESS Comparison: May 31, 2018 MRI TECHNIQUE: Multiplanar noncontrast MRI of the brain was performed on a 1.5 Yaneth magnet. FINDINGS: BRAIN PARENCHYMA: General: Again seen are multiple acute confluent and scattered in the left MILLY territory involving the left superior frontal gyrus, cingulate gyrus, and corpus callosum. Small acute lacunar infarcts in the left frontal and parietal alvarez radiata (series 4 image 12) are new since the prior exam. There is also worsening restricted diffusion within the corpus callosum posteriorly. There is no associated intracranial hemorrhage. Multiple old lacunar infarcts are again seen in the bilateral alvarez radiata, bilateral lentiform nuclei, right striat ocapsular region, and right thalamus, and alis. Ventricles: Normal size and appearance. Midline Structures: The pituitar y gland, corpus callosum, and remaining midline structures are normal. VASCULATURE: Arterial: The major intracranial arterial flow voi ds are present. Venous: The dural venous sinus flow voids are grossly norm al. PARANASAL SINUSES: The visualized portions of the paranasal si nuses are clear. MASTOIDS: PAGE 1 Signed Report (CONTINUED) FAX: Abbi Hearn MD [place]: St: ADM FAX: Vidal Gutiérrez ----- Name: TIM DALTON [facility] : 1970 Age/S: 48/F [address] [place] [address] Unit #: [id number] Loc: [address] [address] Phys: Abbi Santizo i, MD Acct: [id number] Dis Date: Status: ADM IN PHONE #: [phone] Exam Date: 06/04/2018 1131 FAX #: [phone] Reason: WORSENING OF WEAKNESS EXAM S: CPT CODE: [id number] MRI BR AIN W/O CONT 57207 <Continued> Clear. SOFT TISSUES AND ORBITS: The visualized portions are normal. IMPRESSION: 1. Progressive acute ischemia in the posterior body of the corpus callosum and new acute lacunar infarcts in the left frontal and parietal alvarez radiata. 2. Evolving infarct in the left MILLY territory, as previously seen. 3. Multiple old lacunar infarcts in the bilateral alvarez radiata, basal ganglia, and alis. Findings discussed with Dr. Mckeon at 11:50 AM 06/04/2018 by telephone. SL: SAW [id number] a t 1151 Reported and signed by: Singh Rodríguez M.D. CC: Abbi Mckeon MD; Vidal Martinez MD Technolog ist: Arielle Borrego, RT(MR)(CT) Trnmsrd Date/Time/By : 06/04/2018 (1151) : By: [email or web address] Orig Print D/T: S: 06/04/2018 (115 5) PAGE 2 Signed Report BASIC METABOLIC [id number] 11:07:00* Test Item Value Reference Range Comments SODIUM (test code=NA) 140 mEq/L 134-147 POTASSIUM (test code=K) 3.9 mEq/L 3.4-5.0 CHLORIDE (test code=CL) 108 mEq/L 100-108 CARBON DIOXIDE (test code=CO2) 27 mEq/L 21-33 ANION GAP (test code=GAP) 9 0-20 GLUCOSE (test code=GLU) 171 mg/dL 70-110 BLOOD UREA NITROGEN (test code=BUN) 20 mg/dL 7-18 GLOMERULAR FILTRATION RATE (test code=GFR) 76.6 95-105 Units of measure=ml/min/1.73 m2 CREATININE (test code=CREAT) 0.8 mg/dL 0.6-1.3 CALCIUM (test code=CA) 8.9 mg/dL 8.0-10.5 CBC W/AUTO [id number] 10:48:00* Test Item Value Reference Range Comments WHITE BLOOD CELL (test code=WBC) 9.92 x10 3/uL 4.5-11.0 RED BLOOD CELL (test code=RBC) 4.52 x10 6/uL 3.54-5.02 HEMOGLOBIN (test code=HGB) 13.1 g/dL 11.0-15.0 HEMATOCRIT (test code=HCT) 41.2 % 33.0-45.0 MEAN CELL VOLUME (test code=MCV) 91.2 fL 81.0-99.0 MEAN CELL HGB (test code=MCH) 29.0 pg 27.0-33.0 MEAN CELL HGB CONCETRATION (test code=MCHC) 31.8 g/dL 33.0-37.0 RED CELL DISTRIBUTION WIDTH CV (test code=RDW) 12.3 % 11.5-14.5 RED CELL DISTRIBUTION WIDTH SD (test code=RDW-SD) 41.1 fL 37.0-54.0 PLATELET COUNT (test code=PLT) 223 x10 3/uL 150-400 MEAN PLATELET VOLUME (test code=MPV) 12.1 fL 7.0-9.0 NEUTROPHIL % (test code=NT%) 74.7 % 56.0-77.0 IMMATURE GRANULOCYTE % (test code=IG%) 0.3 % 0.0-2.0 LYMPHOCYTE % (test code=LY%) 18.4 % 14.0-32.0 MONOCYTE % (test code=MO%) 5.0 % 4.8-9.0 EOSINOPHIL % (test code=EO%) 1.0 % 0.3-3.7 BASOPHIL % (test code=BA%) 0.6 % 0.0-2.0 NUCLEATED RBC % (test code=NRBC%) 0.0 % 0-0 NEUTROPHIL # (test code=NT#) 7.40 x10 3/uL 2.0-7.6 IMMATURE GRANULOCYTE # (test code=IG#) 0.03 x10 3/uL 0.00-0.03 LYMPHOCYTE # (test code=LY#) 1.83 x10 3/uL 1.0-3.8 MONOCYTE # (test code=MO#) 0.50 x10 3/uL 0.1-0.8 EOSINOPHIL # (test code=EO#) 0.10 x10 3/uL 0.0-0.2 BASOPHIL # (test code=BA#) 0.06 x10 3/uL 0.0-0.2 NUCLEATED RBC # (test code=NRBC#) 0.00 x10 3/uL 0.0-0.1 MANUAL DIFF REQUIRED (test code=MDIFF) NO - CT HEAD/BRAIN W/O [id number] 10:15:00 Name: TIM DALTON [facility] : 1970 Age/S: 48 / F [address] [place] [address] Unit #: [id number] Loc: [place] [address] Phys: Ramos Hurtado MD Acct: [id number] Dis Date: Status: ADM IN PHONE #: [phone] Exam Date: 06/04/2018 0949 FAX #: [phone] Reason: WORSENING RIGHT SIDED WEAKNESS EXAMS: CPT CODE: [id number] CT HEAD/BRAIN W/O CONT 38365 STUDY: - CT HEAD/BRAIN W/O CONT 06/04/2018 8:57 AM Ordering Physician: Ramos Hurtado MD Patient Name: TIM DALTON MR: [id number] : 1970; Age: 48 years y/o Female Clinical Indication: WORSENING RIGHT SIDED WEAKNESS Comparison: May 31, 2018 TECHNIQUE: Multiple contiguous transaxial noncontrast CT images were obtained through the head. Coronal and sagittal reformatted images were prepared. DOSE: CT imaging performed at this location utilizes radiation dose optimization technique which includes one or more of the followin) Automated exposure control; 2) Adjustment of the mA and/or kV according to patient's size; 3) Use of iterative reconstruction techniques. DLP (mGy-cm): 862 FINDINGS: Interval evolution of prior noted ischemia in the left anterior cerebral artery vascular distribution. Unchanged lacunar infarcts in the right basal ganglia, alvarez radiata and alis. No evidence of acute intracranial hemorrhage, mass lesion, mass effect, midline shift, or extra-axial fluid collection. The lateral sim tricles, third ventricle, fourth ventricle, and basilar cisterns are appro priate for degree of atrophy present. The visualized portions of the paranasal sinuses are clear. Mastoids are clear. IMPRESSION: No acute intracranial abnorm ality. Interval evolution of prior noted ischemia in the left anterior cerebral artery vascular distribution. Unchanged lacunar infar cts in the right basal ganglia, alvarez radiata and alis. P AGE 1 Signed Report (CONTINUED) Name : TIM DALTON [facility] : [birth year] Age/S: 48 / F [address] [place] [address] Unit #: [id number] Loc: [place] [address] Phys: Ramos Hurtado MD Acct: [id number] Dis Date: Status: ADM IN PHONE #: [phone] Exam Date: 06/04/2018 0949 FAX #: [phone] Reason: WORSENING RIGHT SIDED WEAKNESS EXAMS: CPT CODE: [id number] CT HEAD/BRAIN W/[place] [address] <Continued> If there is further concern for intracranial pathology or acute stroke, further assessment with an MRI of the brain should be considered. SL: [id number] at 1015 Reported and signed by: Alba Snow D.O. CC: Ramos Hurtado MD; Vidal Martinez MD Technologist:Enmanuel Duggan, RT(R)(CT) CTDI: DLP: Trnscb Date/Time: 06/04/2018 (1015) [id number] Orig Print D/T: S: 06/04/2018 (1018) CTDI: DLP: PAGE 2 Signed Report [id number] 08:13:00* Test Item Value Reference Range Comments GLUBED (test code=GLUBED) 131 MG/DL 70-110 Performed by certified sliver machine operator at [facility] [id number] 21:22:00* Test Item Value Reference Range Comments GLUBED (test code=GLUBED) 107 MG/DL 70-110 Performed by certified sliver machine operator at [facility] [id number] 16:54:00* Test Item Value Reference Range Comments GLUBED (test code=GLUBED) 132 MG/DL 70-110 Performed by certified sliver machine operator at [facility] [id number] 12:33:00* Test Item Value Reference Range Comments GLUBED (test code=GLUBED) 179 MG/DL 70-110 Performed by certified sliver machine operator at [facility] [id number] 07:57:00* Test Item Value Reference Range Comments GLUBED (test code=GLUBED) 110 MG/DL 70-110 Performed by certified sliver machine operator at [facility] [id number] 20:43:00* Test Item Value Reference Range Comments GLUBED (test code=GLUBED) 167 MG/DL 70-110 Performed by certified sliver machine operator at [facility] [id number] 17:35:00* Test Item Value Reference Range Comments GLUBED (test code=GLUBED) 125 MG/DL 70-110 Performed by certified sliver machine operator at [facility] [id number] 12:57:00* Test Item Value Reference Range Comments GLUBED (test code=GLUBED) 239 MG/DL 70-110 Performed by certified sliver machine operator at [facility] [id number] 08:08:00* Test Item Value Reference Range Comments GLUBED (test code=GLUBED) 121 MG/DL 70-110 Performed by certified sliver machine operator at [facility] [id number] 21:14:00* Test Item Value Reference Range Comments GLUBED (test code=GLUBED) 120 MG/DL 70-110 Performed by certified sliver machine operator at [facility] [id number] 17:23:00* Test Item Value Reference Range Comments GLUBED (test code=GLUBED) 174 MG/DL 70-110 Performed by certified sliver machine operator at [facility] ARTERIAL THROMBOPHILIA [id number] 13:49:00* Test Item Value Reference Range Comments PROTHROMBIN 3 UNTRANSLATED (test code=[id number]) PROTHROMBIN TIME PATIENT (test code=PTP) 10.7 SECONDS 9.3-12.9 INTERNATIONAL NORMAL RATIO (test code=INR) 1.0 0.8-1.2 TARGET INR BY INDICATION Indication INR1. Prophylaxis of venous thrombosis 2.0 - 3.0 (orthopedic surgery), Prophylaxis of venous thrombosis (other than high-risk surgery), Treatment of Deep Vein Thrombosis/Pulmonary Embolism, Prevention of systemic embolism - Tissue heart valves, Acute Myocardial Infarction (to prevent systemic embolism), Valvular heart disease, Atrial Fibrillation, Bileaflet mechanical valve in aortic position.2. Mechanical prosthetic valves (high risk), 2.5 - 3.5 Presence of Lupus Anticoagulant or Antiphospholipid Antibodies, Prevention of systemic embolism - Acute Myocardial Infarction (to prevent recurrent infarct). THROMBOPLASTIN TIME PARTIAL (test code=PTT) 34.0 Seconds 25.0-39.5 Therapeutic Range: 61.8-83.8 Sec Effective 05/22/2013 PTT 1:1 MIX MAGICIAN HELPER (test code=PTTMIX2) SECS PTT 1:3 MIX (test code=PTTMIX3) SECS PT 1:2 MIX (test code=PTMIX2) SECS RVVT PATIENT (test code=RVVTPAT) 0.9 RATIO 0.0-1.2 ACTIVATED PROT C RESISTANCE (test code=APC) 3.22 RATIO 2.31-5.00 Ratios > or=to 2.31 are considered negative for the FactorV Leiden. SILICA CLOTTING TIME (test code=SILCLOT) 1.13 <1.14 PT 11.2 sec (9.6-13.0)PTT 29 sec (25-37) A Lupus Anticoagulant is NOT DETECTED. This interpretationis based on the test results. FACTOR V MUTATION (LEIDEN) (test code=FAC5M) PROTEIN S FREE (test code=PROTSFR) 107 % 55-124 Protein S deficiency may be acquired due to recentthrombosis, oral anticoagulant therapy, , oralcontraceptives or hormone replacement therapy, liverdysfunction, recent surgery, DIC, and vitamin K deficiency.Hereditary deficiency of Protein S show decreased levels butare rare. Elevated Protein S levels are not clinicallysignificant. Only decreased levels are associated with anincreased thrombotic risk. MILLY IGG (test code=ACAG) 0.6 GPL <=15 MILLY IGA (test code=ACAA) 1.4 APL <=12 MILLY IGM (test code=ACAM) 2.9 MPL <=12.5 The Antiphospholipid Syndrome (APS) is a clinical pathologiccondition that includes a clinical event (vascularthrombosis, mortality, thrombocytopenia, etc.) andpersistent positivity of antiphospholipid antibodies (IgG orIgM MILLY>40 GPL/MPL, IgG or IgM anti-B2GPI antibodies, or thepresence of a Lupus Anticoagulant). The InternationalConsensus guidelines suggest that these isotypes must bepresent on two or more occasions and at least 12 weeks apartto confirm antibody persistence. Although the IgA isotypehas been implicated in thrombotic events, these isotypeshave not yet been included into the APS criteria. OJAO-4-TYFTK I IGM (test code=GPIIGM) 1.4 SMU 0.0-20.0 VEIX-1-GSTZU I IGG (test code=GPIIGG) 0.5 SGU 0.0-20.0 JBGU-3-KTTGS I IGA (test code=GPIIGA) 5.7 MIESHA 0.0-20.0 The Antiphospholipid Syndrome (APS) is a clinical pathologiccondition that includes a clinical event (vascularthrombosis, mortality, thrombocytopenia, etc.) andpersistent positivity of antiphospholipid antibodies (IgG orIgM MILLY>40 GPL/MPL, IgG or IgM anti-B2GPI antibodies, or thepresence of a Lupus Anticoagulant). The InternationalConsensus guidelines suggest that these isotypes must bepresent on two or more occasions and at least 12 weeks apartto confirm antibody persistence. Although the IgA isotypehas been implicated in thrombotic events, these isotypeshave not yet been included into the APS criteria. HOMOCYSTEINE (test code=HOMOCY) 6.4 umol/L 3.2-10.7 HIGH SENSITIVITY CRP (test code=CRPHS) mg/L ARTERIAL THROMBOPHILIA [id number] 13:24:00* Test Item Value Reference Range Comments PROTHROMBIN 3 UNTRANSLATED (test code=EF6XVBZ) PROTHROMBIN TIME PATIENT (test code=PTP) 10.7 SECONDS 9.3-12.9 INTERNATIONAL NORMAL RATIO (test code=INR) 1.0 0.8-1.2 TARGET INR BY INDICATION Indication INR1. Prophylaxis of venous thrombosis 2.0 - 3.0 (orthopedic surgery), Prophylaxis of venous thrombosis (other than high-risk surgery), Treatment of Deep Vein Thrombosis/Pulmonary Embolism, Prevention of systemic embolism - Tissue heart valves, Acute Myocardial Infarction (to prevent systemic embolism), Valvular heart disease, Atrial Fibrillation, Bileaflet mechanical valve in aortic position.2. Mechanical prosthetic valves (high risk), 2.5 - 3.5 Presence of Lupus Anticoagulant or Antiphospholipid Antibodies, Prevention of systemic embolism - Acute Myocardial Infarction (to prevent recurrent infarct). THROMBOPLASTIN TIME PARTIAL (test code=PTT) 34.0 Seconds 25.0-39.5 Therapeutic Range: 61.8-83.8 Sec Effective 05/22/2013 PTT 1:1 MIX MAGICIAN HELPER (test code=PTTMIX2) SECS PTT 1:3 MIX (test code=PTTMIX3) SECS PT 1:2 MIX (test code=PTMIX2) SECS RVVT PATIENT (test code=RVVTPAT) 0.9 RATIO 0.0-1.2 ACTIVATED PROT C RESISTANCE (test code=APC) 3.22 RATIO 2.31-5.00 Ratios > or=to 2.31 are considered negative for the FactorV Leiden. SILICA CLOTTING TIME (test code=SILCLOT) 1.13 <1.14 PT 11.2 sec (9.6-13.0)PTT 29 sec (25-37) A Lupus Anticoagulant is NOT DETECTED. This interpretationis based on the test results. FACTOR V MUTATION (LEIDEN) (test code=FAC5M) PROTEIN S FREE (test code=PROTSFR) 107 % 55-124 Protein S deficiency may be acquired due to recentthrombosis, oral anticoagulant therapy, , oralcontraceptives or hormone replacement therapy, liverdysfunction, recent surgery, DIC, and vitamin K deficiency.Hereditary deficiency of Protein S show decreased levels butare rare. Elevated Protein S levels are not clinicallysignificant. Only decreased levels are associated with anincreased thrombotic risk. MILLY IGG (test code=ACAG) 0.6 GPL <=15 MILLY IGA (test code=ACAA) 1.4 APL <=12 MILLY IGM (test code=ACAM) 2.9 MPL <=12.5 The Antiphospholipid Syndrome (APS) is a clinical pathologiccondition that includes a clinical event (vascularthrombosis, mortality, thrombocytopenia, etc.) andpersistent positivity of antiphospholipid antibodies (IgG orIgM MILLY>40 GPL/MPL, IgG or IgM anti-B2GPI antibodies, or thepresence of a Lupus Anticoagulant). The InternationalConsensus guidelines suggest that these isotypes must bepresent on two or more occasions and at least 12 weeks apartto confirm antibody persistence. Although the IgA isotypehas been implicated in thrombotic events, these isotypeshave not yet been included into the APS criteria. OVPV-6-MMRKV I IGM (test code=GPIIGM) SMU 0.0-20.0 NTZW-1-VFWVZ I IGG (test code=GPIIGG) SGU 0.0-20.0 ZGRU-0-KWEQQ I IGA (test code=GPIIGA) 5.7 MIESHA 0.0-20.0 The Antiphospholipid Syndrome (APS) is a clinical pathologiccondition that includes a clinical event (vascularthrombosis, mortality, thrombocytopenia, etc.) andpersistent positivity of antiphospholipid antibodies (IgG orIgM MILLY>40 GPL/MPL, IgG or IgM anti-B2GPI antibodies, or thepresence of a Lupus Anticoagulant). The InternationalConsensus guidelines suggest that these isotypes must bepresent on two or more occasions and at least 12 weeks apartto confirm antibody persistence. Although the IgA isotypehas been implicated in thrombotic events, these isotypeshave not yet been included into the APS criteria. HOMOCYSTEINE (test code=HOMOCY) 6.4 umol/L 3.2-10.7 HIGH SENSITIVITY CRP (test code=CRPHS) mg/L ARTERIAL THROMBOPHILIA [id number] 13:22:00* Test Item Value Reference Range Comments PROTHROMBIN 3 UNTRANSLATED (test code=MB1PLKS) PROTHROMBIN TIME PATIENT (test code=PTP) 10.7 SECONDS 9.3-12.9 INTERNATIONAL NORMAL RATIO (test code=INR) 1.0 0.8-1.2 TARGET INR BY INDICATION Indication INR1. Prophylaxis of venous thrombosis 2.0 - 3.0 (orthopedic surgery), Prophylaxis of venous thrombosis (other than high-risk surgery), Treatment of Deep Vein Thrombosis/Pulmonary Embolism, Prevention of systemic embolism - Tissue heart valves, Acute Myocardial Infarction (to prevent systemic embolism), Valvular heart disease, Atrial Fibrillation, Bileaflet mechanical valve in aortic position.2. Mechanical prosthetic valves (high risk), 2.5 - 3.5 Presence of Lupus Anticoagulant or Antiphospholipid Antibodies, Prevention of systemic embolism - Acute Myocardial Infarction (to prevent recurrent infarct). THROMBOPLASTIN TIME PARTIAL (test code=PTT) 34.0 Seconds 25.0-39.5 Therapeutic Range: 61.8-83.8 Sec Effective 05/22/2013 PTT 1:1 MIX MAGICIAN HELPER (test code=PTTMIX2) SECS PTT 1:3 MIX (test code=PTTMIX3) SECS PT 1:2 MIX (test code=PTMIX2) SECS RVVT PATIENT (test code=RVVTPAT) 0.9 RATIO 0.0-1.2 ACTIVATED PROT C RESISTANCE (test code=APC) 3.22 RATIO 2.31-5.00 Ratios > or=to 2.31 are considered negative for the FactorV Leiden. SILICA CLOTTING TIME (test code=SILCLOT) 1.13 <1.14 PT 11.2 sec (9.6-13.0)PTT 29 sec (25-37) A Lupus Anticoagulant is NOT DETECTED. This interpretationis based on the test results. FACTOR V MUTATION (LEIDEN) (test code=FAC5M) PROTEIN S FREE (test code=PROTSFR) 107 % 55-124 Protein S deficiency may be acquired due to recentthrombosis, oral anticoagulant therapy, , oralcontraceptives or hormone replacement therapy, liverdysfunction, recent surgery, DIC, and vitamin K deficiency.Hereditary deficiency of Protein S show decreased levels butare rare. Elevated Protein S levels are not clinicallysignificant. Only decreased levels are associated with anincreased thrombotic risk. MILLY IGG (test code=ACAG) 0.6 GPL <=15 MILLY IGA (test code=ACAA) 1.4 APL <=12 MILLY IGM (test code=ACAM) 2.9 MPL <=12.5 The Antiphospholipid Syndrome (APS) is a clinical pathologiccondition that includes a clinical event (vascularthrombosis, mortality, thrombocytopenia, etc.) andpersistent positivity of antiphospholipid antibodies (IgG orIgM MILLY>40 GPL/MPL, IgG or IgM anti-B2GPI antibodies, or thepresence of a Lupus Anticoagulant). The InternationalConsensus guidelines suggest that these isotypes must bepresent on two or more occasions and at least 12 weeks apartto confirm antibody persistence. Although the IgA isotypehas been implicated in thrombotic events, these isotypeshave not yet been included into the APS criteria. BXDM-0-QGOCN I IGM (test code=GPIIGM) SMU <20 GJXV-1-ROBXN I IGG (test code=GPIIGG) UNITS <20 YDRI-0-XWFMZ I IGA (test code=GPIIGA) 0.0-20.0 HOMOCYSTEINE (test code=HOMOCY) 6.4 umol/L 3.2-10.7 HIGH SENSITIVITY CRP (test code=CRPHS) mg/L [id number] 12:33:00* Test Item Value Reference Range Comments GLUBED (test code=GLUBED) 195 MG/DL 70-110 Performed by certified sliver machine operator at [facility] ARTERIAL THROMBOPHILIA [id number] 11:44:00* Test Item Value Reference Range Comments PROTHROMBIN 3 UNTRANSLATED (test code=IY8NIMM) PROTHROMBIN TIME PATIENT (test code=PTP) 10.7 SECONDS 9.3-12.9 INTERNATIONAL NORMAL RATIO (test code=INR) 1.0 0.8-1.2 TARGET INR BY INDICATION Indication INR1. Prophylaxis of venous thrombosis 2.0 - 3.0 (orthopedic surgery), Prophylaxis of venous thrombosis (other than high-risk surgery), Treatment of Deep Vein Thrombosis/Pulmonary Embolism, Prevention of systemic embolism - Tissue heart valves, Acute Myocardial Infarction (to prevent systemic embolism), Valvular heart disease, Atrial Fibrillation, Bileaflet mechanical valve in aortic position.2. Mechanical prosthetic valves (high risk), 2.5 - 3.5 Presence of Lupus Anticoagulant or Antiphospholipid Antibodies, Prevention of systemic embolism - Acute Myocardial Infarction (to prevent recurrent infarct). THROMBOPLASTIN TIME PARTIAL (test code=PTT) 34.0 Seconds 25.0-39.5 Therapeutic Range: 61.8-83.8 Sec Effective 05/22/2013 PTT 1:1 MIX MAGICIAN HELPER (test code=PTTMIX2) SECS PTT 1:3 MIX (test code=PTTMIX3) SECS PT 1:2 MIX (test code=PTMIX2) SECS RVVT PATIENT (test code=RVVTPAT) 0.9 RATIO 0.0-1.2 ACTIVATED PROT C RESISTANCE (test code=APC) 3.22 RATIO 2.31-5.00 Ratios > or=to 2.31 are considered negative for the FactorV Leiden. SILICA CLOTTING TIME (test code=SILCLOT) 1.13 <1.14 PT 11.2 sec (9.6-13.0)PTT 29 sec (25-37) A Lupus Anticoagulant is NOT DETECTED. This interpretationis based on the test results. FACTOR V MUTATION (LEIDEN) (test code=FAC5M) PROTEIN S FREE (test code=PROTSFR) 107 % 55-124 Protein S deficiency may be acquired due to recentthrombosis, oral anticoagulant therapy, , oralcontraceptives or hormone replacement therapy, liverdysfunction, recent surgery, DIC, and vitamin K deficiency.Hereditary deficiency of Protein S show decreased levels butare rare. Elevated Protein S levels are not clinicallysignificant. Only decreased levels are associated with anincreased thrombotic risk. MILLY IGG (test code=ACAG) MILLY IGA (test code=ACAA) MILLY IGM (test code=ACAM) UQGM-1-RSRQZ I IGM (test code=GPIIGM) SMU <20 LYOI-4-WCNMW I IGG (test code=GPIIGG) UNITS <20 XEXV-4-NZJLV I IGA (test code=GPIIGA) 0.0-20.0 HOMOCYSTEINE (test code=HOMOCY) 6.4 umol/L 3.2-10.7 HIGH SENSITIVITY CRP (test code=CRPHS) mg/L ARTERIAL THROMBOPHILIA [id number] 11:42:00* Test Item Value Reference Range Comments PROTHROMBIN 3 UNTRANSLATED (test code=RS1BOHI) PROTHROMBIN TIME PATIENT (test code=PTP) 10.7 SECONDS 9.3-12.9 INTERNATIONAL NORMAL RATIO (test code=INR) 1.0 0.8-1.2 TARGET INR BY INDICATION Indication INR1. Prophylaxis of venous thrombosis 2.0 - 3.0 (orthopedic surgery), Prophylaxis of venous thrombosis (other than high-risk surgery), Treatment of Deep Vein Thrombosis/Pulmonary Embolism, Prevention of systemic embolism - Tissue heart valves, Acute Myocardial Infarction (to prevent systemic embolism), Valvular heart disease, Atrial Fibrillation, Bileaflet mechanical valve in aortic position.2. Mechanical prosthetic valves (high risk), 2.5 - 3.5 Presence of Lupus Anticoagulant or Antiphospholipid Antibodies, Prevention of systemic embolism - Acute Myocardial Infarction (to prevent recurrent infarct). THROMBOPLASTIN TIME PARTIAL (test code=PTT) 34.0 Seconds 25.0-39.5 Therapeutic Range: 61.8-83.8 Sec Effective 05/22/2013 PTT 1:1 MIX MAGICIAN HELPER (test code=PTTMIX2) SECS PTT 1:3 MIX (test code=PTTMIX3) SECS PT 1:2 MIX (test code=PTMIX2) SECS RVVT PATIENT (test code=RVVTPAT) 0.9 RATIO 0.0-1.2 ACTIVATED PROT C RESISTANCE (test code=APC) SILICA CLOTTING TIME (test code=SILCLOT) 1.13 <1.14 PT 11.2 sec (9.6-13.0)PTT 29 sec (25-37) A Lupus Anticoagulant is NOT DETECTED. This interpretationis based on the test results. FACTOR V MUTATION (LEIDEN) (test code=FAC5M) PROTEIN S FREE (test code=PROTSFR) 107 % 55-124 Protein S deficiency may be acquired due to recentthrombosis, oral anticoagulant therapy, , oralcontraceptives or hormone replacement therapy, liverdysfunction, recent surgery, DIC, and vitamin K deficiency.Hereditary deficiency of Protein S show decreased levels butare rare. Elevated Protein S levels are not clinicallysignificant. Only decreased levels are associated with anincreased thrombotic risk. MILLY IGG (test code=ACAG) MILLY IGA (test code=ACAA) MILLY IGM (test code=ACAM) ROFM-4-GUZEA I IGM (test code=GPIIGM) SMU <20 QRYR-3-BTLJK I IGG (test code=GPIIGG) UNITS <20 DAGA-0-NFEHC I IGA (test code=GPIIGA) 0.0-20.0 HOMOCYSTEINE (test code=HOMOCY) 6.4 umol/L 3.2-10.7 HIGH SENSITIVITY CRP (test code=CRPHS) mg/L ARTERIAL THROMBOPHILIA [id number] 11:38:00* Test Item Value Reference Range Comments PROTHROMBIN 3 UNTRANSLATED (test code=MW1OAEV) PROTHROMBIN TIME PATIENT (test code=PTP) 10.7 SECONDS 9.3-12.9 INTERNATIONAL NORMAL RATIO (test code=INR) 1.0 0.8-1.2 TARGET INR BY INDICATION Indication INR1. Prophylaxis of venous thrombosis 2.0 - 3.0 (orthopedic surgery), Prophylaxis of venous thrombosis (other than high-risk surgery), Treatment of Deep Vein Thrombosis/Pulmonary Embolism, Prevention of systemic embolism - Tissue heart valves, Acute Myocardial Infarction (to prevent systemic embolism), Valvular heart disease, Atrial Fibrillation, Bileaflet mechanical valve in aortic position.2. Mechanical prosthetic valves (high risk), 2.5 - 3.5 Presence of Lupus Anticoagulant or Antiphospholipid Antibodies, Prevention of systemic embolism - Acute Myocardial Infarction (to prevent recurrent infarct). THROMBOPLASTIN TIME PARTIAL (test code=PTT) 34.0 Seconds 25.0-39.5 Therapeutic Range: 61.8-83.8 Sec Effective 05/22/2013 PTT 1:1 MIX MAGICIAN HELPER (test code=PTTMIX2) SECS PTT 1:3 MIX (test code=PTTMIX3) SECS PT 1:2 MIX (test code=PTMIX2) SECS RVVT PATIENT (test code=RVVTPAT) 0.9 RATIO 0.0-1.2 ACTIVATED PROT C RESISTANCE (test code=APC) SILICA CLOTTING TIME (test code=SILCLOT) 1.13 <1.14 PT 11.2 sec (9.6-13.0)PTT 29 sec (25-37) A Lupus Anticoagulant is NOT DETECTED. This interpretationis based on the test results. FACTOR V MUTATION (LEIDEN) (test code=FAC5M) PROTEIN S FREE (test code=PROTSFR) % MILLY IGG (test code=ACAG) MILLY IGA (test code=ACAA) MILLY IGM (test code=ACAM) AMYB-7-LKSSR I IGM (test code=GPIIGM) SMU <20 TNWM-7-ZGWIW I IGG (test code=GPIIGG) UNITS <20 IYTG-3-HLVXT I IGA (test code=GPIIGA) 0.0-20.0 HOMOCYSTEINE (test code=HOMOCY) 6.4 umol/L 3.2-10.7 HIGH SENSITIVITY CRP (test code=CRPHS) mg/L [id number] 07:50:00* Test Item Value Reference Range Comments GLUBED (test code=GLUBED) 133 MG/DL 70-110 Performed by certified sliver machine operator at [facility] [id number] 21:11:00* Test Item Value Reference Range Comments GLUBED (test code=GLUBED) 152 MG/DL 70-110 Performed by certified sliver machine operator at [facility] - MRA NECK [id number] 20:43:00 FAX: Ashlie Toure [phone] [place]: St: ADM FAX: Vidal Gutiérrez [phone] Name: TIM DALTON [facility] : 1970 Age/S: 48/F [address] [place] [address] Unit #: [id number] Loc: G.661 [facility] X [address] Phys: Ashlie Alexis MD Acct: [id number] Dis Date: Status: ADM IN PHONE #: [phone] Exam Date: 05/31/20181921 FAX #: [phone] Reason: new left frontal lesion, worsening right weakne EXAMS: CPT CODE: [id number] MRA NECK W/CONT [id number] EXAM: MRA NECK WITH CONTRAST DATE: 05/31/2018 6:09 PM INDICATION: Right-sided weakness. COMPARISON: May 29, 2018. TECHNIQUE: 3D pgci-tm-gwcmoi MR angiography of the neck arteries was performed after the intravenous injection of 19 mL of Mu ltiHance. 3D reconstructed images were generated. FINDINGS: The great vessels originate from the aortic arch in the standard con figuration. No origin stenosis is identified. The cervical common carotid arteries and cervical internal carotid arteries have a normal cour se, caliber, and contour. No hemodynamically significant stenosis is ident ified. The vertebral arteries have a normal course, caliber and co ntour. The vertebral artery origins are patent bilaterally and arise from the subclavian arteries. IMPRESSION: Unremarkabl e MRA of the neck. SL: WR3-H Electronic ally Signed by Analisa Hurtado on 05/31/2018 at 2042 Re ported and signed by: Jalen Hurtado M.D. CC: Ashlie Stephens MD; Bhakti Martinez MD Technologist: RT Fred(R)(CT) Trnscrd Date/Time/By: 05/31/2018 (2042) : By: [email or web address] Orig Print D/T: S: 05/31/2018 (2045) PAGE 1 Signed Report - MRA HEAD W/O CONTRAST 2018-05-31 20:38:00 FAX: Ashlie Toure [phone] [place]: St: [facility] FAX: Vidal Gutiérrez [phone] Name: TIM DALTON [facility] : 1970 Age/S: 48/F [address] [place] [address] Blvd Unit #: [id number] Loc: [address] [place] [address] Phys: Ashlie Alexis MD Acct: [id number] Dis Date: Status: ADM IN PHONE #: [phone] Exam Date: 05/31/20181921 FAX #: [phone] Reason: new left frontal lesion, worsening right weakne EXAMS: CPT CODE: [id number] MRA HEAD W/O CONTRAST [id number] EXAM: MRA HEAD WITHOUT CONTRAST DATE: 05/31/2018 6:09 PM INDICATION: Right-sided weakness.. COMPARISON: May 29, 2018. TECHNIQUE: Three-dimensional time of flight brain MR angiography of intracranial vessels is performed, and maximum intensity projection reformatted images are presented in multiple three-dimensional rotational projections. FINDINGS: No arteritis, vascular malformation or aneurysm is identified. The petrous, cavernous, and supraclinoid segments of the internal carotid arteries are unremarkable. Occlusion involving the A2 segment of the left anterior cerebral artery is identified, series 4 image 98. The right anterior cerebral artery demonstrates a normal course and caliber. The middle cerebral arteries demonstrate a normal course and caliber. The anterior communicating artery complex is within normal limits. The vertebral and basilar arteries demonstrate a normal course and caliber. A origin to the r ight posterior cerebral artery is noted. The posterior cerebral arteries are otherwise unremarkable. IMPRESSION: 1. Proximal occl usion involving the A2 segment of the left anterior cerebral artery. 2. origin to the right posterior cerebral artery. SL: WR3-H at 2038 Reported and signed by: Jalen Hurtado M.D. PAGE 1 Signed Report (CONTINUED) FAX: Ashlie Toure [phone] [place]: St: ADM FAX: Vidal Gutiérrez [phone] Name: TIM DALTON [facility] : 1970 Age/S: 48/F [address] [place] [address] Unit #: [id number] Loc: [address] [address] Phys: Ashlie Alexis MD Acct: [id number] Dis Date: Status: ADM IN PHONE #: [phone] Exam Date: 05/31/20181921 FAX #: [phone] Reason: new left frontal lesion, worsening right weakne EXAMS: CPT CODE: [id number] MRA HEAD W/O CONTRAST [id number] <Continued> CC: Ashlie Stephens MD; Vidal Martinez MD Technologist: Dennis Soriano RT(R)(CT) Trnmsrd Date/Time/By: 05/31/2018 (2037) : By: [email or web address] Orig Print D/T: S: 05/31/2018 (2040) PAGE 2 Signed Report - MRI BRAIN WO/W [id number] 20:34:00 FAX: Ashlie Toure [phone] [place]: St: ADM FAX: Vidal Gutiérrez [phone] Name: TIM [facility] [facility] : 1970 Age/S: 48/F [address] [place] [address] Unit #: [id number] Loc: [address] [place] [address] Phys: Ashlie Alexis MD Acct: [id number] Dis Date: Status: ADM IN PHONE #: [phone] Exam Date: 05/31/20181921 FAX #: [phone] Reason: new left frontal lesion, worsening right weakne EXAMS: CPT CODE: [id number] MRI BRAIN WO/W CONT 08121 EXAM: MRI BRAIN WITH AND WITHOUT CONTRAST DATE: 05/31/2018 6:09 PM INDICATION: Right-sided weakness. COM PARISON: MRI brain dated May 29, 2018. TECHNIQUE: Multiplanar, multisequence MRI imaging of the brain was acquired with and without intr avenous contrast. A total of 19 mL MultiHance was administered intravenous ly. FINDINGS: Restricted diffusion predominantly in a left a nterior cerebral artery vascular distribution has slightly progressed in t he interim, more pronounced in the left parasagittal superior frontal gyru s on series 4 image 6. Additional involvement of the left frontal lobe, c orpus callosum, and right basal ganglia appear similar to prior examinatio n. Numerous old lacunar infarcts are noted throughout the perivent ricular white matter, basal ganglia, and alis. Mild chronic microangiopat hic changes and diffuse parenchymal volume loss is identified. No e vidence for abnormal enhancement or gradient susceptibility artifact is no ingrid. The orbits, paranasal sinuses, mastoid air cells are unremarkable. The major intracranial flow voids are maintained. IMPRESSION: 1. Acute ischemia within the left anterior cerebral artery vascular distribution has slightly progressed in the interim, with new involve ment of the left parasagittal superior frontal gyrus. 2. Redem onstration of acute to subacute infarcts within the left frontal lobe, b jenna of the corpus callosum, and right basal ganglia, similar to prior ex amination. 3. Numerous old lacunar infarcts within the alvarez radiata, basal ganglia, and alis. 4. No abnormal enhan cement or intracranial hemorrhage. SL: WR3-H PAGE 1 Signed Report (CONTINUED) FAX: Ashlie Toure [phone] [place]: St: [facility] FAX: Vidal Grimm [phone] Name: TIM DALTON [facility]ly [facility] : 1970 Age/S: 48/F [address] Unit #: [id number] Loc: G.661 [place], [place] [address] Phys: Ashlie Alexis MD Acct: [id number] Dis Date: Status: ADM IN PHONE #: [phone] Exam Date: 05/31/2018 1 922 FAX #: [phone] Reason: new left frontal lesion, w orsening right weakne EXAMS: CP T CODE: [id number] MRI BRAIN WO/W CONT 42759 <Continued> at 2033 Reported and signed by: Jalen Hurtado M.D. CC: Ashlie Stephens MD; Vidal Martinez MD Technologist: Dennis Soriano RT(R)(CT) Trnscrd Date/Time/By: 05/31/2018 (2033) : By: [email or web address] Orig Print D/T: S: 05/31/2018 (2036) PAGE 2 Signed Report - CT HEAD/BRAIN W/O [id number] 17:50:00 Name: TIM DALTON [facility]ly [facility] : 1970 Age/S: 48 / F [address] [place], [place] [address]vd Unit #: [id number] Loc: [place] [address] Phys: Ashlie Alexis MD Acct: [id number] Dis Date: Status: ADM IN PHONE #: [phone] Exam Date: 05/31/2018 1722 FAX #: [phone] Reason: worsening of right weakness EXAMS: CPT CODE: [id number] CT HEAD/BRAIN W/O CONT 24240 CT HEAD WITHOUT CONTRAST INDICATION: Worsening right-sided weakness. Hypertensive emergency. Acute ischemic changes left posterior frontal periventricular white matter and midcorpus callosum on the 05/29/2018 MRI. COMPARISON: 05/28/2018 CT head and 05/29/2018 MRI brain. TECHNIQUE: Helical CT images obtained from the foramen magnum to the vertex without the use of intravenous contrast on a multi detector CT. CT imaging performed at this location utilizes radiation dose optimization techniques which include one or more of the following: - Automated exposure control -Adjustment of the mA and/or kV according to patient size -Use of iterative reconstruction technique CT Radiation Dose DLP 861.40 mGy-cm FINDINGS: BRAIN PARENCHYMA: No mass effect or midline shift. There is an area of diminished attenuation posterior frontal periventricular white matter and left corpus callosum as noted on recent MRI. These changes were not present on the CT of 05/28/2018. In addition there is a small area of diminished attenuation superior medial left frontal lobe in the same location as the diffusion abnormality. There is questionable increased hypoattenuation in the more superior and lateral left frontal lobe anteriorly. No acute intracranial hemorrhage.. VENTRICLES: Ventricular system is stable. No dilatation. ORBITS, MASTOIDS AND PARANASAL SINUSES: The visualized orbits and paranasal sinuses are unremarkable. The mastoid air cells are clear. SKULL: The bony calvarium is intact. IMPRESSION: 1. Question of very subtle interval development of areas of diminished attenuation anteriorly and superiorly left frontal lobe not present on the prior CT. This area does not correlate with any diffusion abnormalities on the MRI from 2 days ago. This is worrisome for additional areas of early infarction or ischemia. PAGE 1 Signed Report (CONTINUED) Name: TIM DALTON [facility] : 1970 Age/S: 48 / F [address] [place] [address] Unit #: [id number] Loc: [place] [address] Phys: Ashlie Alexis MD Acct: [id number] Dis Date: Status: ADM IN PHONE #: [phone] Exam Date: 05/31/2018 1722 FAX #: Reason: worsening of right weakness EXAMS : CPT CODE: [id number] CT HEAD /BRAIN W/O CONT 37369 <Continued> 2. The areas of restricted diffusion left frontal lobe evident on the MRI 2 days ago now are visible on CT. 3. No intracranial hemorrhage, mass effect or midline shift. These results were called to [facility] patient's nurse, by Dr. Vance at 5:49 PM on 05/31/2018. END IMPRESSION WR1-H at 1750 Reported and signed by: Navarro Vance M.D. CC: Ashlie Stephens MD; Vidal Martinez MD Technologist:Enmanuel Duggan RT(R)(CT) CTDI: DLP: Trnscb Date/Time: 05/31/2018 (175) KanRTB Orig Print D/T: S: 05/31/2018 (9947) CTDI: DLP: PAGE 2 Signed Report [id number] 16:58:00* Test Item Value Reference Range Comments GLUBED (test code=GLUBED) 208 MG/DL 70-110 Performed by certified sliver machine operator at [facility] [id number] 12:25:00* Test Item Value Reference Range Comments GLUBED (test code=GLUBED) 205 MG/DL 70-110 Performed by certified sliver machine operator at [facility] [id number] 07:27:00* Test Item Value Reference Range Comments GLUBED (test code=GLUBED) 184 MG/DL 70-110 Performed by certified sliver machine operator at [facility] ARTERIAL THROMBOPHILIA [id number] 05:05:00* Test Item Value Reference Range Comments PROTHROMBIN 3 UNTRANSLATED (test code=ZQ1WVTB) PROTHROMBIN TIME PATIENT (test code=PTP) 10.7 SECONDS 9.3-12.9 INTERNATIONAL NORMAL RATIO (test code=INR) 1.0 0.8-1.2 TARGET INR BY INDICATION Indication INR1. Prophylaxis of venous thrombosis 2.0 - 3.0 (orthopedic surgery), Prophylaxis of venous thrombosis (other than high-risk surgery), Treatment of Deep Vein Thrombosis/Pulmonary Embolism, Prevention of systemic embolism - Tissue heart valves, Acute Myocardial Infarction (to prevent systemic embolism), Valvular heart disease, Atrial Fibrillation, Bileaflet mechanical valve in aortic position.2. Mechanical prosthetic valves (high risk), 2.5 - 3.5 Presence of Lupus Anticoagulant or Antiphospholipid Antibodies, Prevention of systemic embolism - Acute Myocardial Infarction (to prevent recurrent infarct). THROMBOPLASTIN TIME PARTIAL (test code=PTT) 34.0 Seconds 25.0-39.5 Therapeutic Range: 61.8-83.8 Sec Effective 05/22/2013 PTT 1:1 MIX MAGICIAN HELPER (test code=PTTMIX2) SECS PTT 1:3 MIX (test code=PTTMIX3) SECS PT 1:2 MIX (test code=PTMIX2) SECS RVVT PATIENT (test code=RVVTPAT) ACTIVATED PROT C RESISTANCE (test code=APC) SILICA CLOTTING TIME (test code=SILCLOT) FACTOR V MUTATION (LEIDEN) (test code=FAC5M) PROTEIN S FREE (test code=PROTSFR) % MILLY IGG (test code=ACAG) MILLY IGA (test code=ACAA) MILLY IGM (test code=ACAM) QZEU-5-CMURU I IGM (test code=GPIIGM) SMU <20 XZVO-9-PUTUK I IGG (test code=GPIIGG) UNITS <20 SUBL-7-WWAFG I IGA (test code=GPIIGA) 0.0-20.0 HOMOCYSTEINE (test code=HOMOCY) 6.4 umol/L 3.2-10.7 HIGH SENSITIVITY CRP (test code=CRPHS) mg/L ARTERIAL THROMBOPHILIA [id number] 04:56:00* Test Item Value Reference Range Comments PROTHROMBIN 3 UNTRANSLATED (test code=IV5ZMWP) PROTHROMBIN TIME PATIENT (test code=PTP) 10.7 SECONDS 9.3-12.9 INTERNATIONAL NORMAL RATIO (test code=INR) 1.0 0.8-1.2 TARGET INR BY INDICATION Indication INR1. Prophylaxis of venous thrombosis 2.0 - 3.0 (orthopedic surgery), Prophylaxis of venous thrombosis (other than high-risk surgery), Treatment of Deep Vein Thrombosis/Pulmonary Embolism, Prevention of systemic embolism - Tissue heart valves, Acute Myocardial Infarction (to prevent systemic embolism), Valvular heart disease, Atrial Fibrillation, Bileaflet mechanical valve in aortic position.2. Mechanical prosthetic valves (high risk), 2.5 - 3.5 Presence of Lupus Anticoagulant or Antiphospholipid Antibodies, Prevention of systemic embolism - Acute Myocardial Infarction (to prevent recurrent infarct). THROMBOPLASTIN TIME PARTIAL (test code=PTT) 34.0 Seconds 25.0-39.5 Therapeutic Range: 61.8-83.8 Sec Effective 05/22/2013 PTT 1:1 MIX MAGICIAN HELPER (test code=PTTMIX2) SECS PTT 1:3 MIX (test code=PTTMIX3) SECS PT 1:2 MIX (test code=PTMIX2) SECS RVVT PATIENT (test code=RVVTPAT) ACTIVATED PROT C RESISTANCE (test code=APC) SILICA CLOTTING TIME (test code=SILCLOT) FACTOR V MUTATION (LEIDEN) (test code=FAC5M) PROTEIN S FREE (test code=PROTSFR) % MILLY IGG (test code=ACAG) MILLY IGA (test code=ACAA) MILLY IGM (test code=ACAM) ECVQ-4-WVYMH I IGM (test code=GPIIGM) SMU <20 GCBW-2-FOLPV I IGG (test code=GPIIGG) UNITS <20 DPPP-9-USTUO I IGA (test code=GPIIGA) 0.0-20.0 HOMOCYSTEINE (test code=HOMOCY) umol/L 3.2-10.7 HIGH SENSITIVITY CRP (test code=CRPHS) mg/L [id number] 21:06:00* Test Item Value Reference Range Comments GLUBED (test code=GLUBED) 152 MG/DL 70-110 Performed by certified sliver machine operator at [facility] [id number] 17:02:00* Test Item Value Reference Range Comments GLUBED (test code=GLUBED) 311 MG/DL 70-110 Performed by certified sliver machine operator at [facility] UR HCG [id number] 11:48:00* Test Item Value Reference Range Comments UR HCG QUAL (test code=HCGQLU) NEGATIVE NEGATIVE - MRI BRAIN WO/W [id number] 08:36:00 FAX: Vidal Gutiérrez [phone] [place]: St: ADM FAX: Nkechi Briseno [phone] Name: TIM DALTON [facility]ly [facility] : 1970 Age/S: 48/F [address] [place] [address] Unit #: [id number] Loc: G.661 [place] [address] Phys: Nkechi Chavira MD Acct: [id number] Dis Date: Status: ADM IN PHONE #: [phone] Exam Date: 05/29/2018 1740 FAX #: [phone] Reason: Ischemic Stroke EXAMS: CPT CODE: [id number] MRI BRAIN WO/W CONT 67140 MRI brain without and with contrast 05/29/2018 HISTORY: Ischemic stroke, hypertensive urgency PROCEDURE: Multiplanar m ultisequence imaging of the brain is performed without and with contrast. 19 mL of MultiHance were injected intravenously Comparison is made to CT head performed on 05/28/2018 FINDINGS: No acute hemorr argelia, midline shift, extra-axial fluid collection, hydrocephalus, or mass lesion is present. The visualized mastoid air cells are clear. There is no air-fluid level in the visualized paranasal sinuses. There are mild ar eas of increased FLAIR signal in the cerebral white matter. There is incr eased FLAIR signal in the left midbrain involving the cerebral peduncle. There is no blooming artifact on the heme sequence to suggest remote hemor rhage. The craniocervical junction and corpus callosum are within normal limits. On diffusion-weighted imaging, acute ischemia in the left p osterior frontal centrum semiovale and mid corpus callosum is noted. Tiny focus of restricted diffusion in the right posterior basal ganglia seen on sequence 4 image 12. On post contrast imaging, no abnormal enhancement is present. IMPRESSION: 1. Acute ischemia involving left posterior frontal periventricular white matter as well as mid corpus c allosum. 2. Tiny acute lacunar infarct in right posterior basal ganglia . 3. No abnormal enhancement. No acute hemorrhage. 4. Baselin e mild chronic microvascular ischemic changes. SL: [id number] at 0836 Re ported and signed by: Zeus Dorsey M.D. CC: Vidal Martinez MD; Radha Chavira MD Technologist: RT Fred(R)(CT) Trnscrd Date/Time/By: 05/30/2018 (0836) : By: [email or web address] Orig Print D/T: S: 05/30/2018 (0865) PAGE 1 Signed Report [id number] 08:24:00* Test Item Value Reference Range Comments GLUBED (test code=GLUBED) 170 MG/DL 70-110 Performed by certified sliver machine operator at [facility] - MRA NECK [id number] 07:50:00 FAX: Vidal Gutiérrez [phone] [place]: St: ADM FAX: Y Nkechi Chavira [phone] Name: TIM DALTON [facility] : 1970 Age/S: 48/F [address] [place] [address] Blvd Unit #: [id number] Loc: [address] [place] [address] Phys: Nkechi Chavira MD Acct: [id number] Dis Date: Status: ADM IN PHONE #: [phone] Exam Date: 05/29/2018 1739 FAX #: [phone] Reason: Ischemic Stroke EXAMS: CPT CODE: [id number] MRA NECK W/CONT 43521 MRA neck with contrast HISTORY: Ischemic stroke PROCEDURE: 3-D pwwg-cz-aaklzi MR angiography of the neck arteries was performed after the intravenous injection of 19 mL of MultiHance. 3-D reconstructed images were performed. ICA stenosis indirectly reference the distal internal carotid diameter as the denominator for stenosis measurement, utilizing consensus panel criteria for PQRS code. (NASCET) FINDINGS: The bilateral common carotid arteries and int ernal carotid arteries have normal caliber. The bilateral vertebral arter ies have antegrade flow and normal caliber. IMPRES RANDI: No significant narrowing or stenosis within neck arteries identifi ed. SL: [id number] Electronically Maritza d by Analisa Dorsey on 05/30/2018 at 0750 Reported and signed by: Ander Montez CC: Vidal Martinez MD; Nkechi Chavira MD T echnologist: RT Fred(R)(CT) Trnscrd Date /Time/By: 05/30/2018 (0750) : By: [email or web address] Orig Print D/T: S: 019 (0754) PAGE 1 Signed Report - MRA HEAD W/O [id number] 07:48:00 FAX: Vidal Gutiérrez [phone] [place]: St: ADM FAX: Nkechi Briseno [phone] Name: TIM DALTON [facility] : 1970 Age/S: 48/F [address] [place] [address] Unit #: [id number] Loc: [address] [place] [address] Phys: Nkechi Chavira MD Acct: [id number] Dis Date: Status: ADM IN PHONE #: [phone] Exam Date: 05/29/2018 1739 FAX #: [phone] Reason: Ischemic Stroke EXAMS: CPT CODE: [id number] MRA HEAD W/O CONTRAST 27856 MRA head without contrast 05/29/2018 HISTORY: Hypert ensive emergency, altered mental status PROCEDURE: 3-D time-of-fli ght MR angiography of the [place] of [place] is performed without contrast. 3-D reconstruction images were performed Comparison is made to noncontrast head CT performed on 05/28/2018 FINDINGS: The distal vertebral arteries and basilar artery have normal caliber. There is origin of the right posterior cerebral artery. Both posterior cerebral arteries have normal caliber. The distal internal carotid arteries, middl e cerebral arteries, and anterior cerebral arteries have normal caliber. IMPRESSION: 1. No flow-limiting stenosis or aneurysm shavon ntified within [place] of [place]. 2. origin of right poste rior cerebral artery, a normal variant. SL: [id number] at 0748 Reported and signed by: Zeus Dorsey M.D. CC: Vidal Martinez MD; Nkechi Chavira MD Technologist: Dennis Soriano, RT(R)(CT) [facility] Date/Time/By: 05/30/2018 (0748) : By: [email or web address] Orig Print D/T: S: 05/30/2018 (0752) PAGE 1 Signed Report [id number] 07:32:00* Test Item Value Reference Range Comments GLUBED (test code=GLUBED) 219 MG/DL 70-110 Performed by certified sliver machine operator at [facility] [id number] 21:22:00* Test Item Value Reference Range Comments GLUBED (test code=GLUBED) 257 MG/DL 70-110 Performed by certified sliver machine operator at [facility] [id number] 20:23:00* Test Item Value Reference Range Comments GLUBED (test code=GLUBED) 196 MG/DL 70-110 Performed by certified sliver machine operator at [facility] [id number] 17:05:00* Test Item Value Reference Range Comments GLUBED (test code=GLUBED) 218 MG/DL 70-110 Performed by certified sliver machine operator at [facility] DRUGS OF ABUSE SCREEN [id number] 14:47:00* Test Item Value Reference Range Comments URN COCAINE (test code=COCAURN) POSITIVE NEGATIVE URN CANNABINOIDS (test code=CANNABURN) POSITIVE NEGATIVE URN AMPHETAMINE (test code=AMPHETURN) NEGATIVE NEGATIVE URN BARBITURATE (test code=BARBITURN) NEGATIVE NEGATIVE URN BENZODIAZEPINE (test code=BENZOURN) NEGATIVE NEGATIVE Cut-off value:200 ng/mL URN OPIATES (test code=OPIATURN) NEGATIVE NEGATIVE Cut-off value:2000 ng/mL URN PHENCYCLIDINE (PCP) (test code=PHENCURN) NEGATIVE NEGATIVE Cutoffs:Barbiturates 200 ng/mLBenzodiazepines 200 ng/mLTHC Cannabinoids 50 ng/mLOpiates(Morphine) 2000 ng/mLAmphetamine 1000 ng/mLCocaine 300 ng/mLPCP phencyclidine 25 ng/mL Unconfirmed screening results shouldnot be used for non-medical purposes. DRUGS OF ABUSE SCREEN [id number] 14:34:00* Test Item Value Reference Range Comments URN COCAINE (test code=COCAURN) NEGATIVE URN CANNABINOIDS (test code=CANNABURN) NEGATIVE URN AMPHETAMINE (test code=AMPHETURN) NEGATIVE NEGATIVE URN BARBITURATE (test code=BARBITURN) NEGATIVE NEGATIVE URN BENZODIAZEPINE (test code=BENZOURN) NEGATIVE NEGATIVE Cut-off value:200 ng/mL URN OPIATES (test code=OPIATURN) NEGATIVE NEGATIVE Cut-off value:2000 ng/mL URN PHENCYCLIDINE (PCP) (test code=PHENCURN) NEGATIVE NEGATIVE Cutoffs:Barbiturates 200 ng/mLBenzodiazepines 200 ng/mLTHC Cannabinoids 50 ng/mLOpiates(Morphine) 2000 ng/mLAmphetamine 1000 ng/mLCocaine 300 ng/mLPCP phencyclidine 25 ng/mL Unconfirmed screening results shouldnot be used for non-medical purposes. HGBA1C%2018-05-29 10:26:00* Test Item Value Reference Range Comments HGBA1C% (test code=HGBA1C%) 9.6 %A1C 4.8-6.0 BASIC METABOLIC [id number] 06:31:00* Test Item Value Reference Range Comments SODIUM (test code=NA) 138 mEq/L 134-147 POTASSIUM (test code=K) 3.2 mEq/L 3.4-5.0 CHLORIDE (test code=CL) 104 mEq/L 100-108 CARBON DIOXIDE (test code=CO2) 27 mEq/L 21-33 ANION GAP (test code=GAP) 10 0-20 GLUCOSE (test code=GLU) 243 mg/dL 70-110 BLOOD UREA NITROGEN (test code=BUN) 13 mg/dL 7-18 GLOMERULAR FILTRATION RATE (test code=GFR) 89.3 95-105 Units of measure=ml/min/1.73 m2 CREATININE (test code=CREAT) 0.7 mg/dL 0.6-1.3 CALCIUM (test code=CA) 8.2 mg/dL 8.0-10.5 THYROID STIMULATING [id number] 06:31:00* Test Item Value Reference Range Comments THYROID STIMULATING HORMONE (test code=TSH) 4.16 0.42-5.47 Results in casandra-International Units/mL CBC W/AUTO [id number] 06:03:00* Test Item Value Reference Range Comments WHITE BLOOD CELL (test code=WBC) 8.59 x10 3/uL 4.5-11.0 RED BLOOD CELL (test code=RBC) 3.93 x10 6/uL 3.54-5.02 HEMOGLOBIN (test code=HGB) 11.8 g/dL 11.0-15.0 HEMATOCRIT (test code=HCT) 35.2 % 33.0-45.0 MEAN CELL VOLUME (test code=MCV) 89.6 fL 81.0-99.0 MEAN CELL HGB (test code=MCH) 30.0 pg 27.0-33.0 MEAN CELL HGB CONCETRATION (test code=MCHC) 33.5 g/dL 33.0-37.0 RED CELL DISTRIBUTION WIDTH CV (test code=RDW) 12.3 % 11.5-14.5 RED CELL DISTRIBUTION WIDTH SD (test code=RDW-SD) 40.0 fL 37.0-54.0 PLATELET COUNT (test code=PLT) 180 x10 3/uL 150-400 MEAN PLATELET VOLUME (test code=MPV) 12.6 fL 7.0-9.0 NEUTROPHIL % (test code=NT%) 61.9 % 56.0-77.0 IMMATURE GRANULOCYTE % (test code=IG%) 0.2 % 0.0-2.0 LYMPHOCYTE % (test code=LY%) 31.2 % 14.0-32.0 MONOCYTE % (test code=MO%) 4.5 % 4.8-9.0 EOSINOPHIL % (test code=EO%) 1.7 % 0.3-3.7 BASOPHIL % (test code=BA%) 0.5 % 0.0-2.0 NUCLEATED RBC % (test code=NRBC%) 0.0 % 0-0 NEUTROPHIL # (test code=NT#) 5.31 x10 3/uL 2.0-7.6 IMMATURE GRANULOCYTE # (test code=IG#) 0.02 x10 3/uL 0.00-0.03 LYMPHOCYTE # (test code=LY#) 2.68 x10 3/uL 1.0-3.8 MONOCYTE # (test code=MO#) 0.39 x10 3/uL 0.1-0.8 EOSINOPHIL # (test code=EO#) 0.15 x10 3/uL 0.0-0.2 BASOPHIL # (test code=BA#) 0.04 x10 3/uL 0.0-0.2 NUCLEATED RBC # (test code=NRBC#) 0.00 x10 3/uL 0.0-0.1 MANUAL DIFF REQUIRED (test code=MDIFF) NO [id number] 01:03:00* Test Item Value Reference Range Comments MAGNESIUM (test code=MAG) 1.60 mg/dL 1.8-2.4 [id number] 23:19:00* Test Item Value Reference Range Comments GLUBED (test code=GLUBED) 192 MG/DL 70-110 Performed by certified sliver machine operator at [facility] [id number] 15:54:00* Test Item Value Reference Range Comments TROPONIN-I (test code=TROPI) 0.242 ng/mL 0.000-0.045 Negative: <=0.045 Positive: >=0.046 Correlation with serial results, other cardiac markers andclinical findings is necessary to determine the clinicalsignificance of this result. Results using different methodologies should not be comparedto one another as quantitative results may vary by method. LIPOPROTEIN [id number] 13:18:00* Test Item Value Reference Range Comments LIPOPROTEIN LDL (test code=LDL) 112 mg/dL 0-100 <100 [id number] NEAR OPTIMAL/ABOVE [id number] HIGH>UD=926 VERY HIGH*Guidelines provided by the National Cholesterol EducationProgram Adult Treatment Panel III BASIC METABOLIC [id number] 13:02:00* Test Item Value Reference Range Comments SODIUM (test code=NA) 136 mEq/L 134-147 POTASSIUM (test code=K) 3.7 mEq/L 3.4-5.0 CHLORIDE (test code=CL) 103 mEq/L 100-108 CARBON DIOXIDE (test code=CO2) 29 mEq/L 21-33 ANION GAP (test code=GAP) 8 0-20 GLUCOSE (test code=GLU) 240 mg/dL 70-110 BLOOD UREA NITROGEN (test code=BUN) 14 mg/dL 7-18 GLOMERULAR FILTRATION RATE (test code=GFR) 76.6 95-105 Units of measure=ml/min/1.73 m2 CREATININE (test code=CREAT) 0.8 mg/dL 0.6-1.3 CALCIUM (test code=CA) 7.9 mg/dL 8.0-10.5 [id number] 13:02:00* Test Item Value Reference Range Comments TROPONIN-I (test code=TROPI) 0.241 ng/mL 0.000-0.045 Negative: <=0.045 Positive: >=0.046 Correlation with serial results, other cardiac markers andclinical findings is necessary to determine the clinicalsignificance of this result. Results using different methodologies should not be comparedto one another as quantitative results may vary by method. URINALYSIS [id number] 13:00:00* Test Item Value Reference Range Comments UA COLOR (test code=COLU) YELLOW YEL/STRAW UA APPEARANCE (test code=APPU) SL CLOUDY CLEAR UA GLUCOSE DIPSTICK (test code=DGLUU) 3+ NEGATIVE UA BILIRUBIN DIPSTICK (test code=BILU) NEGATIVE NEGATIVE UA KETONE DIPSTICK (test code=KETU) NEGATIVE NEGATIVE UA SPECIFIC GRAVITY (test code=SGU) 1.023 1.005-1.030 UA BLOOD DIPSTICK (test code=SUZANNE) NEGATIVE NEGATIVE UA PH DIPSTICK (test code=JOLENE) 6.0 5.0-7.0 UA PROTEIN DIPSTICK (test code=PROU) NEGATIVE NEGATIVE UA UROBILINIOGEN DIPSTICK (test code=URO) 0.2 mg/dL 0.2-1.0 UA NITRITE DIPSTICK (test code=JOURDAN) NEGATIVE NEGATIVE UA LEUKOCYTE ESTERASE DIPSTICK (test code=LEUU) NEGATIVE NEGATIVE UA WBC (test code=WBCU) 0-3 WBC/HPF 0-3 UA RBC (test code=RBCU) 0-3 RBC/HPF 0-3 UA BACTERIA (test code=BACU) TRACE /HPF NONE SEEN UA SQUAMOUS CELLS (test code=SQU) 11-25 /HPF NONE SEEN UA MUCUS (test code=MUCU) 1+ /LPF NONE SEEN COMMENTS: Clean CatchPROTHROMBIN [id number] 12:41:00* Test Item Value Reference Range Comments PROTHROMBIN TIME PATIENT (test code=PTP) 11.6 SECONDS 9.3-12.9 INTERNATIONAL NORMAL RATIO (test code=INR) 1.0 0.8-1.2 TARGET INR BY INDICATION Indication INR1. Prophylaxis of venous thrombosis 2.0 - 3.0 (orthopedic surgery), Prophylaxis of venous thrombosis (other than high-risk surgery), Treatment of Deep Vein Thrombosis/Pulmonary Embolism, Prevention of systemic embolism - Tissue heart valves, Acute Myocardial Infarction (to prevent systemic embolism), Valvular heart disease, Atrial Fibrillation, Bileaflet mechanical valve in aortic position.2. Mechanical prosthetic valves (high risk), 2.5 - 3.5 Presence of Lupus Anticoagulant or Antiphospholipid Antibodies, Prevention of systemic embolism - Acute Myocardial Infarction (to prevent recurrent infarct). THROMBOPLASTIN TIME [id number] 12:41:00* Test Item Value Reference Range Comments THROMBOPLASTIN TIME PARTIAL (test code=PTT) 30.7 Seconds 25.0-39.5 Therapeutic Range: 61.8-83.8 Sec Effective 05/22/2013 CBC W/O [id number] 12:34:00* Test Item Value Reference Range Comments WHITE BLOOD CELL (test code=WBC) 9.66 x10 3/uL 4.5-11.0 RED BLOOD CELL (test code=RBC) 4.43 x10 6/uL 3.54-5.02 HEMOGLOBIN (test code=HGB) 13.0 g/dL 11.0-15.0 HEMATOCRIT (test code=HCT) 39.7 % 33.0-45.0 MEAN CELL VOLUME (test code=MCV) 89.6 fL 81.0-99.0 MEAN CELL HGB (test code=MCH) 29.3 pg 27.0-33.0 MEAN CELL HGB CONCETRATION (test code=MCHC) 32.7 g/dL 33.0-37.0 RED CELL DISTRIBUTION WIDTH CV (test code=RDW) 12.3 % 11.5-14.5 RED CELL DISTRIBUTION WIDTH SD (test code=RDW-SD) 40.4 fL 37.0-54.0 PLATELET COUNT (test code=PLT) 199 x10 3/uL 150-400 MEAN PLATELET VOLUME (test code=MPV) 12.3 fL 7.0-9.0 - CT HEAD/BRAIN W/O [id number] 11:26:00 Name: TIM DALTON [facility] : 1970 Age/S: 48 / F [address] [place] [address] Unit #: [id number] Loc: [facility] [place] [address] Phys: Sergei Fitzgerald DO Acct: [id number] Dis Date: Status: REG ER PHONE #: [phone] Exam Date: 05/28/2018 1110 FAX #: [phone] Reason: AMS right sided paresthesias hypertension EXAMS: CPT CODE: [id number] CT HEAD/BRAIN W/O CONT [id number] STUDY: - CT HEAD/BRAIN W/O CONT 05/28/2018 10:48 AM Ordering Physician: Sergei Fitzgerald DO Patient Name: TIM DALTON MR: [id number] : 1970; Age: 48 years y/o Female Clinical Indication: AMS right sided paresthesias hypertension Comparison: March 03, 2018 CT TECHNIQUE: Multiple contiguous transaxial noncontrast CT images were obtained through the head. Coronal and sagittal reformatted images were prepared. DOSE: CT imaging performed at this location utilizes radiation dose optimization technique which includes one or more of the followin) Automated exposure control; 2) Adjustment of the mA and/or kV according to patient's size; 3) Use of iterative reconstruction techniques. DLP (mGy- cm): 419 FINDINGS: BRAIN PARENCHYMA: Mild diffuseatrophy is present associated with mild nonspecific periventricular low attenuation most consistent with old microangiopathic ischemic change. Multiple chronic appearing lacunar infarct is seen, and the right striatocapsular region, the right thalamus, the left alvarez radi mayo, the left putamen. Questionable lacunar infarcts in the alis No evidence of acute intracranial hemorrhage, mass lesion, mass effect, midl ine shift, or extra-axial fluid collection. VENTRICLES: The latera l ventricles,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
[2018-07-12] MEDS ORDERED: SODIUM CHLORIDE 0.9% 1000ML 1,000 ML IV SCH (14:45)
--- NOTE | 2018-07-12 15:00 | NUR ---
PATIENT BROUGHT TO ROOM 7
== END 2018-07-12 17:02 | disposition home or self-care (01) ==
LOC: ER 13:50
DX: M79.671 Pain in right foot (principal); T25.631A Corrosion of second degree of right toe(s) (nail), initial encounter; Y92.531 Health care provider office as the place of occurrence of the external cause
CPT/HCPCS: 99283

== ENCOUNTER 2024-08-15 20:02 | Emergency (ER) | payer MEDICARE ==
[~2024-08-15] VITALS: Ht 160 cm; Wt 122.5 kg
[2024-08-15 20:37] VITALS: TEMP 98.3
[2024-08-15 22:03] LABS: BASOPHILS # (AUTO) 0.1 (0.0-0.1); BASOPHILS % 0.3 % (0.0-1.0); EOSINOPHILS # (AUTO) 0.1 (0.0-0.4); EOSINOPHILS % 0.8 % (0.0-6.0); HEMATOCRIT 42.4 % (34.2-44.1); HEMOGLOBIN 13.9 g/dL (12.0-16.0); LYMPHOCYTES % 6.1 % (18.0-39.1); MEAN CORPUSCULAR HEMOGLOBIN 28.5 pg (28-32); MEAN CORPUSCULAR HGB CONC 32.8 g/dL (31-35); MEAN CORPUSCULAR VOLUME 86.9 fL (81-99); MONOCYTES # (AUTO) 0.6 (0.2-0.8); MONOCYTES % 3.5 % (4.4-11.3); NEUTROPHILS % 88.9 % (38.7-80.0); PLATELET COUNT 188 x10e3/uL (140-360); RED BLOOD COUNT 4.88 x10e6/uL (3.6-5.1); RED CELL DISTRIBUTION WIDTH 13.6 % (11.7-14.4); WHITE BLOOD COUNT 15.79 x10e3/uL (4.8-10.8)
[2024-08-15 22:35] LABS: BILIRUBIN,URINE NEGATIVE (NEGATIVE); CLARITY,URINE CLEAR (CLEAR); COLOR,URINE YELLOW (YELLOW); GLUCOSE, URINE 500 (NEGATIVE); KETONES,URINE NEGATIVE (NEGATIVE); LEUKOCYTE ESTERASE ,URINE NEGATIVE (NEGATIVE); NITRITE,URINE NEGATIVE (NEGATIVE); PH,URINE 6 (5 - 7); PROTEIN,URINE DIPSTICK NEGATIVE (NEGATIVE); URINE UROBILINOGEN 0.2 mg/dL (0.2 - 1)
[2024-08-15 22:47] LABS: ALBUMIN 3.7 g/dL (3.5-5.0); ANION GAP 15.3 mmol/L (8-16); BILIRUBIN,TOTAL 0.5 mg/dL (0.2-1.2); CALCIUM 9.2 mg/dL (8.4-10.2); CREATININE, SERUM 1.01 mg/dL (0.57-1.11); POTASSIUM 4.3 mmol/L (3.5-5.1); TOTAL PROTEIN 7.5 g/dL (6.5-8.1)
[2024-08-15 23:20] VITALS: PULSE 87; RESP 19
[2024-08-15 23:32] LABS: BACTERIA,URINE MANY /HPF; EPITHELIAL CELLS,URINE FEW /LPF; RBC,URINE 0-5 /HPF (0-5)
[2024-08-16] MEDS ORDERED: ONDANSETRON ODT4 MG PO (00:01)
[2024-08-16] MEDS ORDERED: LEVOFLOXACIN750 MG PO (00:01)
[2024-08-16] MEDS: LEVOFLOXACIN 750MG/D5W 150ML 150 ML IV SCH (00:05)
[2024-08-16] MEDS: ACETAMINOPHEN 325 MG TAB PO ONE (00:49)
[2024-08-16 01:40] VITALS: BP 128/81; PULSE 78; RESP 19; TEMP 98.4; O2SAT 97
== END 2024-08-16 01:32 | disposition home or self-care (01) ==
LOC: ER 20:38
DX: M54.50 Low back pain, unspecified (principal); N39.0 Urinary tract infection, site not specified; R11.2 Nausea with vomiting, unspecified; I10 Essential (primary) hypertension; E11.65 Type 2 diabetes mellitus with hyperglycemia; Z86.73 Personal history of transient ischemic attack (TIA), and cerebral infarction without residual deficits
CPT/HCPCS: 36415; 80053; 81001; 85025; 87086; 87186; 99284